=== PATIENT | female | born 2000 | race Caucasian/White ===

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

== ENCOUNTER 2022-02-14 18:13 | Emergency (ER) | payer OTHER, SELFPAY ==
[2022-02-14 18:22] VITALS: BP 126/61; PULSE 78; RESP 16; TEMP 36.9; O2SAT 100
--- NOTE | 2022-02-14 19:00 | ED.WOUNDLAC ---
HPI - Wound/Laceration General Chief Complaint: Wound/Laceration Stated Complaint: Left Foot Sore on Toe Time Seen by Provider: 02/14/22 18:30 Source: patient Mode of arrival: ambulatory Limitations: no limitations History of Present Illness HPI narrative: Ms. Keller is a 21-year-old female patient presenting to the clinic today with complaints of a possible ingrown toenail to the left great toe. She also reports that she had a wound to the second distal toe that has healed but is still sensitive to touch. She reports that she gets ingrown toenails frequently and her mother used to cut them out for her. Related Data Home Medications Medication Instructions Recorded Confirmed dextroamphetamine-amphetamine 10 10 mg PO DAILY 08/05/21 02/14/22 mg tablet sertraline 50 mg tablet 100 mg PO DAILY 08/05/21 02/14/22 clonidine HCl 0.1 mg tablet 0.1 mg PO DAILY 02/14/22 02/14/22 dextroamphetamine-amphetamine 10 10 mg PO DAILY 02/14/22 02/14/22 mg tablet fluconazole 200 mg tablet 200 mg PO DIRECTED 02/14/22 02/14/22 hydroxyzine HCl 25 mg tablet 25 mg PO DAILY 02/14/22 02/14/22 omeprazole 20 mg capsule,delayed 20 mg PO DAILY 02/14/22 02/14/22 release Allergies Allergy/AdvReac Type Severity Reaction Status Date / Time Mushroom Allergy Unknown BURNING IN Uncoded 02/14/22 18:27 THROAT Review of Systems Review of Systems: Pertinent positives per HPI. Patient denies any fever, chills, rash, headache, visual changes, dizziness, cough, runny nose, sore throat, shortness of breath, chest pain, palpitations, nausea, vomiting, diarrhea, constipation, abdominal pain, or any urinary issues. [facility] Past Medical History Medical History No acute medical problems Social History Social History Gender identity (if verbalized by the patient): Female Comments At the time of my signature, I reviewed and agree with the nursing past medical, surgical, social, and family history. There is no relevant family history pertinent to the patient complaint. Exam Narrative: General: Well-developed, well nourished, in no apparent distress Head: Normocephalic, atraumatic. Cardio: Regular rate and rhythm, s1 and s2 normal, no murmur appreciated. Resp: Clear to auscultation bilaterally, no rhonchi, rales, wheezing or rubs. Musculoskeletal: No deformity, mild tender to palpation over the left great toe lateral nail/lateral toe, mild redness noted without sign of infection, grossly normal range of motion, muscle strength strong and equal, peripheral pulse strong, no edema, no cyanosis, normal gait and station. Patient has healing wound to the second distal toe without signs of infection Course Course Emergency Course: Portions of this record may have been created with voice recognition software. Level of Care: Express Care Visit Vital Signs Vital signs: Vital Signs Temperature 36.9 C 02/14/22 18:22 Pulse Rate 78 02/14/22 18:22 Respiratory Rate 16 02/14/22 18:22 Blood Pressure 126/61 02/14/22 18:22 Pulse Oximetry 100 02/14/22 18:22 Oxygen Delivery Room Air 02/14/22 18:22 Temperature 36.9 C 02/14/22 18:22 Pulse Rate 78 02/14/22 18:22 Respiratory Rate 16 02/14/22 18:22 Blood Pressure 126/61 02/14/22 18:22 Pulse Oximetry 100 02/14/22 18:22 Oxygen Delivery Room Air 02/14/22 18:22 Vital signs reviewed Procedures Other Procedure Procedure 1: Other Procedure: Verbal consent obtained for ingrown toenail wedge resection. Patient declined wanting any local anesthetic. Toenail was cleaned with technic care and a iris scissors and needle forceps was used to remove lateral ingrown toenail. Patient tolerated procedure very well MDM - Wound/Laceration MDM Narrative Medical decision making narrative: At the time of visit patient is resting comfortably on the exam t
== END 2022-02-14 19:03 | disposition home or self-care (01) ==
PROVIDERS: Emergency Provider Nurse Practitioner Family; PCP Family Medicine
DX: L60.0 Ingrowing nail (principal)
CPT/HCPCS: 11765; 99212; G0463

== ENCOUNTER 2022-02-21 17:47 | Emergency (ER) | payer OTHER, SELFPAY ==
[2022-02-21 17:54] VITALS: BP 125/96; PULSE 96; RESP 16; TEMP 36.8; O2SAT 99
--- NOTE | 2022-02-21 18:12 | ED.URI ---
HPI - URI/Sore Throat General Chief Complaint: Upper Respiratory Infection Stated Complaint: nausea, head pains, coughing Time Seen by Provider: 02/21/22 18:10 History of Present Illness HPI Narrative: Varsha Keller is a 21 yo female with a PMH of IBS with constipation who was started on a new medication yesterday and had diarrhea and constipation at the same time today which made her feel really nauseated and unsure about the new medication. She had stomach pain this morning and was unable to go to work and she just seems very anxious; feels GI does not understand how difficult change of this med has been Related Data Home Medications Medication Instructions Recorded Confirmed dextroamphetamine-amphetamine 10 10 mg PO DAILY 08/05/21 02/14/22 mg tablet clonidine HCl 0.1 mg tablet 0.1 mg PO DAILY 02/14/22 02/14/22 dextroamphetamine-amphetamine 10 10 mg PO DAILY 02/14/22 02/14/22 mg tablet omeprazole 20 mg capsule,delayed 20 mg PO DAILY 02/14/22 02/14/22 release Iud 02/21/22 Miralax 02/21/22 Rella For Ibs 02/21/22 Allergies Allergy/AdvReac Type Severity Reaction Status Date / Time Mushroom Allergy Unknown BURNING IN Uncoded 02/21/22 17:52 THROAT Review of Systems Review of Systems: CONSTITUTIONAL: Denies fever, chills, sweats. EYES: Denies visual changes, redness, discharge. ENT: Denies rhinorrhea, congestion, sore throat, otalgia. CARDIOVASCULAR: Denies chest pain, palpitations, edema. RESPIRATORY: Denies dyspnea, wheezing, cough GASTROINTESTINAL: Had abdominal pain this morning has nausea, vomiting, diarrhea. GENITOURINARY: Denies dysuria, hematuria, abnormal discharge SKIN: Denies rash or itching. NEUROLOGIC: Denies numbness, or focal weakness. PSYCHIATRIC: Denies anxiety or depression. [facility] Past Medical History Medical History Family history of irritable bowel syndrome Irritable bowel syndrome with constipation No acute medical problems Social History Social History (Updated 02/21/22 @ 18:21 by Twila Hodge CNP) Smoking status: Current every day smoker Tobacco type: e-cigarettes/vaping Gender identity (if verbalized by the patient): Female Comments At time of signature, I agree with nursing past medical, surgical, social and family history. There is no relevant family history pertinent to the presenting complaint. Exam Narrative: GENERAL: This is a well-nourished, well-developed patient, in mild distress. Anxious HEAD: normocephalic, atraumatic. EYES:. Sclera clear/white. Vision is grossly intact. EARS: External ears normal, . Hearing grossly intact. NOSE: External nose normal without nasal discharge, nares without redness, no rhinorrhea. THROAT: Mucous membranes moist, NECK: Neck supple, CARDIOVASCULAR: Regular rate and rhythm without murmurs, gallops, or rubs. RESPIRATORY: Clear to auscultation. Breath sounds equal bilaterally. No wheezes, rales, or rhonchi. GASTROINTESTINAL: Abdomen soft, non-tender, SKIN: warm, intact with no suspicious lesions or rash, good texture and turgor. NEURO: awake, alert, and oriented to person, place and time. There were no obvious focal neurologic abnormalities. Steady gait EXTREMITIES: Normal range of motion. BACK: Nontender without deformity Course Course Emergency Course: Patient here with complaints of anxiety nausea and difficulty with medication that she just started from GI Patient is to take another dose of the medication in the morning and will give some Zofran to help deal with any nausea discussed appropriate eating habits and hydration Level of Care: Express Care Visit Vital Signs Vital signs: Vital Signs Temperature 98.3 F 02/21/22 17:54 Pulse Rate 96 02/21/22 17:54 Respiratory Rate 16 02/21/22 17:54 Blood Pressure 125/96 H 02/21/22 17:54 Pulse Oximetry 99 02/21/22 17:54 Oxygen Delivery Room Air 02/21/22 17:54 Temperature 98.3 F
== END 2022-02-21 18:31 | disposition home or self-care (01) ==
PROVIDERS: Emergency Provider Nurse Practitioner; PCP Family Medicine
DX: K58.1 Irritable bowel syndrome with constipation (principal); F17.290 Nicotine dependence, other tobacco product, uncomplicated; F90.9 Attention-deficit hyperactivity disorder, unspecified type
CPT/HCPCS: 99213; G0463

== ENCOUNTER 2022-04-21 10:58 | Emergency (ER) | payer OTHER, SELFPAY ==
--- NOTE | 2022-04-21 11:19 | ED.EXTPRO ---
HPI - Extremity Problem General Chief complaint: Extremity Injury, Upper Stated complaint: Left Elbow Pain Time Seen by Provider: 04/21/22 12:05 Source: patient Mode of arrival: ambulatory Limitations: no limitations History of Present Illness HPI Narrative: Concepcion well as a 21-year-old female patient presenting to the clinic today with complaints of left elbow pain. She reports she fell when trying to get something out of the cabinet at work and injured her left elbow. She reports pain to the posterior elbow. States that pain is most when she is straightening and twisting her Related Data Home Medications Medication Instructions Recorded Confirmed dextroamphetamine-amphetamine 10 10 mg PO DAILY 02/14/22 02/14/22 mg tablet omeprazole 20 mg capsule,delayed 20 mg PO DAILY 02/14/22 02/14/22 release escitalopram oxalate 10 mg tablet mg 04/21/22 etonogestrel 0.12 mg-ethinyl vag ring vaginal 04/21/22 estradiol 0.015 mg/24 hr vaginal ring ([facility]) pantoprazole 40 mg tablet,delayed mg PO 04/21/22 release Allergies Allergy/AdvReac Type Severity Reaction Status Date / Time Mushroom Allergy Unknown BURNING IN Uncoded 04/21/22 11:30 THROAT Review of Systems Review of Systems: Pertinent positives per HPI. Patient denies any fever, chills, rash, headache, visual changes, dizziness, cough, runny nose, sore throat, shortness of breath, chest pain, palpitations, nausea, vomiting, diarrhea, constipation, abdominal pain, or any urinary issues. PMFSH Past Medical History Medical History Family history of irritable bowel syndrome Irritable bowel syndrome with constipation No acute medical problems Social History Social History Smoking status: Current every day smoker Tobacco type: e-cigarettes/vaping Gender identity (if verbalized by the patient): Female Comments At the time of my signature, I reviewed and agree with the nursing past medical, surgical, social, and family history. There is no relevant family history pertinent to the patient complaint. Exam Narrative: General: Well-developed, well nourished, in no apparent distress Head: Normocephalic, atraumatic. Cardio: Regular rate and rhythm, s1 and s2 normal, no murmur appreciated. Resp: Clear to auscultation bilaterally, no rhonchi, rales, wheezing or rubs. Musculoskeletal: No deformity, tender to palpation over the left posterior elbow, grossly normal range of motion, pain turning left thumb towards the floor, muscle strength strong and equal, peripheral pulse strong, no edema, no cyanosis, normal gait and station Course Course Emergency Course: Portions of this record may have been created with voice recognition software. Level of Care: Express Care Visit Vital Signs Vital signs: Vital signs reviewed MDM - Extremity (Nontraumatic) MDM Narrative Medical decision making narrative: At the time of the patient is resting comfortably on the exam table. I suspect patient has a elbow contusion however I cannot rule out a fracture. offer to send patient to another Express Care for imaging and she declined at this time. Supportive measures for elbow contusion was reviewed with the patient she voiced understanding of discharge instructions and agrees to treatment plan. Discharge Plan Discharge Clinical Impression: Elbow pain, left, Contusion of elbow, left Patient Disposition: Home, Self-Care Condition: Stable Instructions: Antibiotic Form, Contusion in Adults (ED) Additional Instructions: Offered to send patient for x-ray and she declined at this time May take Tylenol/ Motrin as needed for pain Rest, ice, and elevate Follow-up with your PCP in 1 week if symptoms persist or sooner if they worsen Prescriptions: No Action dextroamphetamine-amphetamine 10 mg tablet 10 mg PO DAILY o
[2022-04-21 11:47] VITALS: BP 129/73; PULSE 75; RESP 16; TEMP 37.1; O2SAT 100
== END 2022-04-21 12:11 | disposition home or self-care (01) ==
PROVIDERS: Emergency Provider Nurse Practitioner Family; PCP Family Medicine
DX: S50.02XA Contusion of left elbow, initial encounter (principal); F17.209 Nicotine dependence, unspecified, with unspecified nicotine-induced disorders; W19.XXXA Unspecified fall, initial encounter; Y99.0 Civilian activity done for income or pay
CPT/HCPCS: 99213; G0463

== ENCOUNTER 2022-05-09 11:42 | Emergency (ER) | payer OTHER, SELFPAY ==
--- NOTE | 2022-05-09 12:07 | ED.EAR ---
HPI - Ear Problem General Chief complaint: Ear Stated complaint: severe migraine,ear inf Time Seen by Provider: 05/09/22 12:32 Source: patient and RN notes reviewed Mode of arrival: ambulatory Limitations: no limitations History of Present Illness HPI Narrative: 21-year-old female presents concern for running half week history of ear pain, sinus congestion, sinus pain, headaches. Reports she started taking leftover amoxicillin today. MD Complaint: ear pain Related Data Home Medications Medication Instructions Recorded Confirmed dextroamphetamine-amphetamine 10 10 mg PO DAILY 02/14/22 02/14/22 mg tablet omeprazole 20 mg capsule,delayed 20 mg PO DAILY 02/14/22 02/14/22 release escitalopram oxalate 10 mg tablet mg 04/21/22 etonogestrel 0.12 mg-ethinyl vag ring vaginal 04/21/22 estradiol 0.015 mg/24 hr vaginal ring (EluRyng) pantoprazole 40 mg tablet,delayed mg PO 04/21/22 release Allergies Allergy/AdvReac Type Severity Reaction Status Date / Time Mushroom Allergy Unknown BURNING IN Uncoded 05/09/22 12:20 THROAT Review of Systems Review of Systems: CONSTITUTIONAL: Reports malaise EYES: Denies visual changes, redness, or discharge. ENT: Reports rhinorrhea, congestion, sinus pain, and sore throat. Reports bilateral ear pain CARDIOVASCULAR: Denies chest pain, palpitations, or edema. RESPIRATORY: Denies cough. Denies dyspnea. GASTROINTESTINAL: Denies abdominal pain, nausea, vomiting, diarrhea SKIN: Denies rash or itching. MUSCULOSKELETAL: Denies myalgia. NEUROLOGIC: Reports headache. All systems reviewed & are unremarkable except as noted in HPI and below PMFSH Past Medical History Medical History Family history of irritable bowel syndrome Irritable bowel syndrome with constipation No acute medical problems Social History Social History Smoking status: Current every day smoker Tobacco type: e-cigarettes/vaping Gender identity (if verbalized by the patient): Female Comments At time of signature, agree with nursing past medical, surgical, social and family history. There is no relevant family history pertinent to the presenting complaint Exam Narrative: GENERAL: Well-appearing, well-nourished, and in no acute distress. HEAD: Normocephalic EYES: PERRLA, conjunctivae clear ENT: Nares clear, turbinates edematous, erythematous. Mucous membranes moist. TM erythematous and bulging bilaterally; no tragal tenderness. Oropharynx erythematous without lesions. Tonsils not enlarged and without exudate, no drooling, no hoarseness, no trismus, uvula midline. NECK: Supple. No lymphadenopathy CHEST: Clear to auscultation, breath sounds equal. No wheezing, rhonchi, rales, or stridor. No respiratory distress, speaks in full sentences. HEART: Regular rate and rhythm. No murmur heard. SKIN: Warm, dry, no rash. NEURO: Alert and oriented x3. PSYCH: Normal mood and affect Course Course Emergency Course: Patient is aware of diagnosis, understands and agrees to treatment plan. Anticipatory guidance given. Patient agrees to follow-up as directed and is aware of reasons to seek care at the emergency department. Portions of this record may have been created with voice recognition software Level of Care: Express Care Visit Vital Signs Vital signs: Reviewed. Medical Decision Making MDM Narrative Medical decision making narrative: Differential diagnosis considered: Jara virus, strep pharyngitis, allergic rhinitis, upper respiratory tract infection, sinusitis, rhinosinusitis, nasopharyngitis. viral pharyngitis, otitis media, otitis externa, otitis effusion, cerumen impaction, foreign body. Exam findings show no acute concerns or changes; patient is non-toxic appearing and is in no distress. Patient is appropriate for outpatient treatment and follow-up. Critical Care Time Krystian
[2022-05-09 12:28] VITALS: BP 139/80; PULSE 71; RESP 20; TEMP 36.2; O2SAT 100
== END 2022-05-09 12:45 | disposition home or self-care (01) ==
PROVIDERS: Emergency Provider Nurse Practitioner; PCP Family Medicine
DX: H66.003 Acute suppurative otitis media without spontaneous rupture of ear drum, bilateral (principal); F17.290 Nicotine dependence, other tobacco product, uncomplicated
CPT/HCPCS: 99213; G0463

== ENCOUNTER 2022-08-06 14:14 | Emergency (ER) | payer OTHER, SELFPAY ==
--- NOTE | ~2022-08-06 | XR_ITS ---
EXAMINATION: XR abdomen/kub 1V DATE: 08/06/2022 15:00 INDICATION: Constipation. TECHNIQUE: A supine view of the abdomen on 3 radiographs was obtained. COMPARISON: None. FINDINGS: There are no dilated loops of bowel. There is a small volume of stool in the colon. IMPRESSION: 1. Normal bowel gas pattern. Reviewed, dictated and finalized at location A. [employer]
--- NOTE | 2022-08-06 14:21 | ED.ABDPAIN ---
HPI - Abdominal Pain General Chief Complaint: Nausea/Vomiting/Diarrhea Stated Complaint: Abdominal Pain Time Seen by Provider: 08/06/22 14:30 Source: patient Mode of arrival: ambulatory Limitations: no limitations History of Present Illness HPI narrative: Jocelynn is a 22-year-old female patient presenting to the clinic today with complaints of abdominal cramping, back pain, dizziness, bruising, weight loss, and nausea x3 months. States she has been to the ER a couple times for this and they have not found anything wrong with her. She is concerned that she may be or has a tape worm. She denies any shortness of breath or chest pain. States she feels as though she is constipated. Has had a bowel movement today but it was very hard. Has a doctor's appointment with her PCP on August 18. History of irritable bowel syndrome with constipation Related Data Home Medications Medication Instructions Recorded Confirmed escitalopram oxalate 10 mg tablet mg 04/21/22 Allergies Allergy/AdvReac Type Severity Reaction Status Date / Time Mushroom Allergy Unknown BURNING IN Uncoded 08/06/22 14:26 THROAT Review of Systems Review of Systems: Pertinent positives per HPI. Patient denies any fever, chills, rash, headache, visual changes, dizziness, cough, runny nose, sore throat, shortness of breath, chest pain, palpitations, nausea, vomiting, diarrhea, constipation, or any urinary issues. PMFSH Past Medical History Medical History Family history of irritable bowel syndrome Irritable bowel syndrome with constipation No acute medical problems Social History Social History Smoking status: Current every day smoker Tobacco type: e-cigarettes/vaping Gender identity (if verbalized by the patient): Female Comments At the time of my signature, I reviewed and agree with the nursing past medical, surgical, social, and family history. There is no relevant family history pertinent to the patient complaint. Exam Narrative: General: Well-developed, well nourished, in no apparent distress. Head: Normocephalic, atraumatic. Cardio: Regular rate and rhythm, s1 and s2 normal, no murmur appreciated. Resp: Clear to auscultation bilaterally, no rhonchi, rales, wheezing or rubs. Abdomen: Soft, pliable, bowel sounds present in all quadrants, generalized tender to palpation, no organomegly, no CVAT tenderness. Skin: Intact, pink, warm, dry, sporadic localized superficial bruising noted to the bilateral arms and legs. Course Course Emergency Course: Portions of this record may have been created with voice recognition software. Level of Care: Express Care Visit Vital Signs Vital signs: Vital Signs Temperature 36.3 C L 08/06/22 14:24 Pulse Rate 78 08/06/22 14:24 Respiratory Rate 16 08/06/22 14:24 Blood Pressure 135/82 08/06/22 14:24 Pulse Oximetry 100 08/06/22 14:24 Oxygen Delivery Room Air 08/06/22 14:24 Temperature 36.3 C L 08/06/22 14:24 Pulse Rate 78 08/06/22 14:24 Respiratory Rate 16 08/06/22 14:24 Blood Pressure 135/82 08/06/22 14:24 Pulse Oximetry 100 08/06/22 14:24 Oxygen Delivery Room Air 08/06/22 14:24 Vital signs reviewed MDM - Abdominal Pain MDM Narrative Medical decision making narrative: At the time of visit patient is resting comfortably on the exam table. Urinalysis shows a trace of blood otherwise normal. test was negative in the clinic today. Abdominal x-ray was performed and shows no sign of abdominal pain etiology. Offer to send patient to the ER for further evaluation-CT/labs and patient declined at this time and states she will just follow up with her PCP on the . Supportive measures were discussed with the patient she voiced understanding of discharge instructions and agrees to treatment plan Differential Diagnosis
[2022-08-06 14:24] VITALS: BP 135/82; PULSE 78; RESP 16; TEMP 36.3; O2SAT 100
== END 2022-08-06 15:30 | disposition home or self-care (01) ==
PROVIDERS: Emergency Provider Nurse Practitioner Family; PCP Family Medicine
DX: R10.84 Generalized abdominal pain (principal); F17.290 Nicotine dependence, other tobacco product, uncomplicated
CPT/HCPCS: 74018; 81003; 81025; 99213; G0463

== ENCOUNTER 2022-09-14 12:51 | Emergency (ER) | payer OTHER, SELFPAY ==
[2022-09-14 13:00] VITALS: BP 135/72; PULSE 74; RESP 16; TEMP 37.2; O2SAT 100
== END 2022-09-14 13:05 | disposition left against medical advice (07) ==
PROVIDERS: Emergency Provider Internal Medicine Hematology & Oncology; PCP Family Medicine
DX: Z53.21 Procedure and treatment not carried out due to patient leaving prior to being seen by health care provider (principal)
CPT/HCPCS: 99199

== ENCOUNTER 2022-12-21 22:11 | Emergency (ER) | payer OTHER, SELFPAY ==
[2022-12-21 22:17] VITALS: BP 114/68; PULSE 90; RESP 16; TEMP 36.2; O2SAT 100
[2022-12-21] MEDS: ACETAMINOPHEN 500 MG TABLET 1000 MG PO (23:28)
[2022-12-21 23:46] LABS: Strep Group A RT-PCR DETECTED (Negative)
--- NOTE | 2022-12-22 00:22 | ED.GENADULT ---
HPI - General Adult General Chief complaint: Unspecified Stated complaint: tonsil stones Time Seen by Provider: 12/21/22 23:02 History of Present Illness HPI narrative: This is a 22-year-old female, with past history of depression and tonsil stones, who presents to the emergency department with 2 days of headache and sore throat. She rates her pain 5/10; exacerbated by swallowing she denies any other known aggravating or alleviating factors. She denies inability to swallow or difficulty breathing. She states she is 5 months . Related Data Home Medications Medication Instructions Recorded Confirmed escitalopram oxalate 10 mg tablet mg 04/21/22 Allergies Allergy/AdvReac Type Severity Reaction Status Date / Time Mushroom Allergy Unknown BURNING IN Uncoded 12/21/22 22:11 THROAT Review of Systems Review of Systems: CONSTITUTIONAL: Fevers denies chills, or sweats. EYES: Denies visual changes, redness, or discharge. ENT: Sore throat denies rhinorrhea, congestion, or otalgia. CARDIOVASCULAR: Denies chest pain, palpitations, or edema. RESPIRATORY: Denies cough or dyspnea. GASTROINTESTINAL: Denies abdominal pain, nausea, vomiting, or diarrhea. GENITOURINARY: Denies dysuria or hematuria. MUSCULOSKELETAL: Denies back pain, joint pain, or myalgia. NEUROLOGIC: Headache denies numbness, dizziness, or weakness. PSYCHIATRIC: Denies anxiety or depression. PMFSH Past Medical History Medical History Family history of irritable bowel syndrome Irritable bowel syndrome with constipation No acute medical problems Social History Social History Smoking status: Current every day smoker Tobacco type: e-cigarettes/vaping Gender identity (if verbalized by the patient): Female Exam Narrative: GENERAL: Well-developed, well-nourished, and in no acute distress. HEAD: Normocephalic, atraumatic. EYES: PERRLA and EOMI. ENT: Nares clear, no rhinorrhea or epistaxis. Mucous membranes moist. Oropharynx with tonsillar hypertrophy, erythema and exudate, No other lesions. Bilateral TMs pearly kapadia nonbulging NECK: Supple. Tender right anterior cervical lymphadenopathy palpation. CHEST: Clear to auscultation. No respiratory distress. No wheezes rales or rhonchi HEART: Regular rate and rhythm. No murmur heard. Normal peripheral pulses. ABDOMEN: Gravid uterus, soft, nontender, nondistended, normal active bowel sounds. EXTREMITIES: Normal range of motion. No edema. SKIN: Warm, dry, no rash. NEURO: No focal deficits. Alert and oriented x3. PSYCH: Normal mood and affect. Course Course Emergency Course: 01:00 - The patient tested positive for strep pharyngitis. Shared decision making conversation had. The patient elects treatment with penicillin. She was given IM pen G which she tolerated well. Will discharge with recommendation for primary care follow-up. Discussed return and emergency precautions including signs/symptoms of airway compromise and respiratory distress. The patient voiced understanding and is comfortable with the plan. All questions answered to her satisfaction. Vital Signs Vital signs: Vital Signs Temperature 97.2 F L 12/21/22 22:17 Pulse Rate 90 12/21/22 22:17 Respiratory Rate 16 12/21/22 22:17 Blood Pressure 114/68 12/21/22 22:17 Pulse Oximetry 100 12/21/22 22:17 Oxygen Delivery Room Air 12/21/22 22:17 Temperature 97.2 F L 12/21/22 22:17 Pulse Rate 90 12/21/22 22:17 Respiratory Rate 16 12/21/22 22:17 Blood Pressure 114/68 12/21/22 22:17 Pulse Oximetry 100 12/21/22 22:17 Oxygen Delivery Room Air 12/21/22 22:17 Medical Decision Making MDM Narrative Medical decision making narrative: Plan: Labs, pain control, reassess Differential Diagnosis Differential Diagnosis: Strep pharyngitis, viral pharyngitis, viral URI, other Vital Sign
[2022-12-22] MEDS: PENICILLIN G BENZATHINE 1,200,000 UNITS/2 ML SYRINGE 1200000 UNITS IM (00:51)
== END 2022-12-22 01:31 | disposition home or self-care (01) ==
PROVIDERS: Emergency Provider Preventive Medicine Aerospace Medicine; PCP Family Medicine
DX: J02.0 Streptococcal pharyngitis (principal); R51.9 Headache, unspecified; K58.1 Irritable bowel syndrome with constipation; F17.290 Nicotine dependence, other tobacco product, uncomplicated
CPT/HCPCS: 87651; 96372; 99283; A9270; J0561

== ENCOUNTER 2023-02-08 13:26 | Emergency (ER) | payer OTHER, SELFPAY ==
[2023-02-08 13:33] VITALS: BP 114/68; PULSE 90; RESP 18; TEMP 35.9; O2SAT 100
--- NOTE | 2023-02-08 14:25 | ED.URI ---
HPI - URI/Sore Throat General Chief Complaint: Upper Respiratory Infection Stated Complaint: Sinus Source: patient Mode of arrival: ambulatory Limitations: no limitations History of Present Illness HPI Narrative: 22 y/o female presented for c/o cough productive of thick green yellow sputum, right sided headache, and sinus pressure above teeth for almost one week. Reports the right sided headache can cause blurred vision. Started with right jaw pressure today. Using albuterol inhaler from previous illness. Denies sob, wheezing, n/v/d/f/c. Taking Sudafed and mucinex as advised by obgyn. Patient vapes nicotine daily. Patient tested for Covid just [employer] with [employer] and is awaiting the result. 25 weeks gestation Related Data Home Medications Medication Instructions Recorded Confirmed escitalopram oxalate 10 mg tablet 20 mg PO DAILY 04/21/22 02/08/23 buspirone 5 mg tablet 5 mg PO BID 02/08/23 02/08/23 metoprolol tartrate 25 mg tablet 25 mg PO BID 02/08/23 02/08/23 Allergies Allergy/AdvReac Type Severity Reaction Status Date / Time Mushroom Allergy Unknown BURNING IN Uncoded 02/08/23 13:47 THROAT Review of Systems Review of Systems: CONSTITUTIONAL: Denies body aches, fever, chills, or sweats. EYES: Denies visual changes, redness, or discharge. ENT: reports rhinorrhea, congestion, denies sore throat, or otalgia. CARDIOVASCULAR: Denies chest pain, palpitations, or edema. RESPIRATORY: Reports cough, sob with exertion, wheezing. GASTROINTESTINAL: Denies abdominal pain, nausea, vomiting, or diarrhea. SKIN: Denies rash, itching, or wounds. MUSCULOSKELETAL: Denies back pain, joint pain, or myalgia. NEUROLOGIC: Denies headache, numbness, tingling, or weakness. All systems reviewed & are unremarkable except as noted in HPI and below PMFSH Past Medical History Medical History Family history of irritable bowel syndrome Irritable bowel syndrome with constipation No acute medical problems Social History Social History Smoking status: Current every day smoker Tobacco type: e-cigarettes/vaping Gender identity (if verbalized by the patient): Female Comments At time of signature, I have reviewed and agree with nursing past medical, surgical, social and family history unless otherwise noted. Please see nursing chart for further information. There is no relevant family history pertinent to the presenting complaint Exam Narrative: GENERAL: Well-appearing, in no acute distress. EYES: EOMI. No redness or drainage. Conjunctivae normal. ENT: Mucous membranes pink and moist. No rhinorrhea. TMs normal bilaterally. Throat normal. Normal dentition. Uvula midline. NECK: Normal AROM. Supple. CHEST: No respiratory distress. End inspiratory wheezing to [place] hill. HEART: Regular rate and rhythm. No murmur appreciated. ABDOMEN: Gravid EXTREMITIES: Normal range of motion. No edema. SKIN: Warm, dry, no rash. Capillary refill normal. Normal skin turgor. NEURO: Alert and oriented x3. Gait steady. PSYCH: Normal affect. Course Course Emergency Course: Patient is aware of diagnosis, understands and agrees to treatment plan. Anticipatory guidance given. Patient agrees to follow-up as directed and is aware of reasons to seek care at the emergency department. Portions of this record may have been created with voice recognition software Level of Care: Express Care Visit Vital Signs Vital signs: Vital Signs Temperature 96.7 F L 02/08/23 13:33 Pulse Rate 90 02/08/23 13:33 Respiratory Rate 18 02/08/23 13:33 Blood Pressure 114/68 02/08/23 13:33 Pulse Oximetry 100 02/08/23 13:33 Oxygen Delivery Room Air 02/08/23 13:33 Temperature 96.7 F L 02/08/23 13:33 Pulse Rate 90 02/08/23 13:33 Respiratory Rate 18 02/08/23 13:33 Blood Pressure 114/68 02/08/23 13:33 Pulse
== END 2023-02-08 14:40 | disposition home or self-care (01) ==
PROVIDERS: Emergency Provider Nurse Practitioner Family; PCP Advanced Practice Midwife
DX: J40 Bronchitis, not specified as acute or chronic (principal)
CPT/HCPCS: 99213; G0463

== ENCOUNTER 2023-03-14 11:31 | Observation (INO) | payer OTHER, SELFPAY ==
[2023-03-14] VITALS (16 sets, daily range): BP systolic 106–130; BP diastolic 53–69; PULSE 80–110; RESP 16–18; TEMP 36.4–36.8; BMI 36.5
--- NOTE | 2023-03-14 12:16 | OBADM ---
This patient, Varsha Keller, admitted to the OB room [facility] for observation. Patient/family oriented to hospital policies and general routines including ID bracelet, bed and alarms, visiting hours, pain management, procedures, bathroom and other care routines, personal items, smoking policy, room service/diet, and visiting hours. Patient/Family are encouraged to report perceived risks to care and to ask questions if they do not understand what they are told or what they should do.
[2023-03-14 12:19] LABS: Appearance Urine Clear (Clear); Bilirubin Urine Negative (Negative); Blood Urine Negative (Negative); Color Urine Yellow (Yellow); Glucose Urine UA Negative (Negative); Ketones Urine Negative (Negative); Leukocyte Esterase Ur Negative LEU/UL (Negative); Nitrate Urine Negative (Negative); Protein Urine Negative (Negative); Specific Grav Ur 1.021 (1.001-1.035); Urobilinogen Urine 0.2 mg/dL (<2.0); pH Urine 7.5 (5.0-9.0)
[2023-03-14 12:42] LABS: Add Urine Microscopic? NO
[2023-03-14] MEDS: ACETAMINOPHEN 500 MG TABLET 1000 MG PO (13:42)
[2023-03-14] MEDS: NIFEdipine 10 MG CAPSULE PO (13:42)
[2023-03-14] MEDS: CYCLOBENZAPRINE HCL 10 MG TABLET PO (13:44)
[2023-03-14] MEDS: TERBUTALINE SULFATE 1 MG/ML VIAL 0.25 MG SUB-Q (16:15)
[2023-03-14] MEDS: NIFEdipine 30 MG TAB.ER.24 PO (16:31)
--- NOTE | 2023-03-14 18:30 | PC.NURSE ---
Plan of care discussed with patient. Patient states she is resting comfortably and states she is not feeling any cramping, pain, tightening. Patient reports active movement.
--- NOTE | 2023-03-14 19:16 | PC.NURSE ---
Updated Dr. Arreola on maternal and assessments including; uterine activity, HR and VS. Patient states she is resting comfortably without cramping/pressure/contractions. Discharge orders received.
--- NOTE | 2023-03-14 19:35 | PC.NURSE ---
Discharge instructions reviewed with patient. Patient educated on perterm labor precautions and provided an educational handout. Patient states understanding of all discharge instructions and handouts. Patient educated on procardia medication and instructed to orange picker prescription from pharmacy and take as prescribe. Patient also instructed to call office in AM to schedule follow up appointment.
--- NOTE | 2023-03-28 21:22 | P.PNOB_ITS ---
OB - Triage/Final Diagnosis Visit Information Comments/Additional reasons for admission: I have assessed the risk for this patient, Varsha Keller, and determined that she would benefit from observation care. Evaluation Laboratory results: Laboratory Tests 03/14/23 12:08 Urine Color Yellow Urine Appearance Clear Urine pH 7.5 Ur Specific [place] 1.021 Urine Protein Negative Urine Glucose (UA) Negative Urine Ketones Negative Ur Blood (Man) Negative Urine Nitrate Negative Urine Bilirubin Negative Urine Urobilinogen 0.2 Leukocyte Esterase Rfl Negative
--- NOTE | 2023-04-09 11:38 | P.PNOB_ITS ---
OB - Triage/Final Diagnosis Visit Information Comments/Additional reasons for admission: I have assessed the risk for this patient, Varsha Keller, and determined that she would benefit from observation care. Evaluation Laboratory results: Laboratory Tests 03/14/23 12:08 Urine Color Yellow Urine Appearance Clear Urine pH 7.5 Ur Specific [place] 1.021 Urine Protein Negative Urine Glucose (UA) Negative Urine Ketones Negative Ur Blood (Man) Negative Urine Nitrate Negative Urine Bilirubin Negative Urine Urobilinogen 0.2 Leukocyte Esterase Rfl Negative Final Diagnosis (1) Headache: Qualifiers: Headache chronicity pattern: acute headache Headache type: unspecified Intractability: not intractable Qualified Code(s): R51.9 - Headache, unspecified Code(s): R51.9 - Headache, unspecified Status: Acute
== END 2023-03-14 19:35 | disposition home or self-care (01) ==
PROVIDERS: Admitting Provider Obstetrics & Gynecology; Referring Provider Advanced Practice Midwife; Visit Provider Obstetrics & Gynecology
DX: R10.9 Unspecified abdominal pain (principal); O26.893 Other specified pregnancy related conditions, third trimester; Z3A.29 29 weeks gestation of pregnancy
CPT/HCPCS: 81003; 96372; A9270; G0378; G0379; J3105

== ENCOUNTER 2023-03-20 08:35 | Outpatient (CLI) | payer OTHER, SELFPAY ==
[2023-03-20] VITALS (73 sets, daily range): BP systolic 92–132; BP diastolic 45–70; PULSE 82–111; RESP 16–20; TEMP 36.6–37.1; O2SAT 98–100
[2023-03-20] MEDS: diphenhydrAMINE HCl CAP 25 MG CAPSULE PO (09:21)
[2023-03-20] MEDS: ACETAMINOPHEN 500 MG TABLET 1000 MG PO (09:21)
[2023-03-20 09:40] LABS: Hematocrit 24.3 % (37.0-47.0); Hemoglobin 7.4 g/dL (12.0-15.0); Mean Corpuscular HGB Conc 30.5 g/dl (32-36); Mean Corpuscular Hemoglobin 28.5 pg (26-34); Mean Corpuscular Volume 93.5 fl (80-100); Mean Platelet Volume 9.5 fl (7.4-10.4); Platelet Count Result 205 k/mm3 (150-375); Red Cell Distribution Width 13.8 % (11.5-14.5); White Blood Count 12.5 K/mm3 (4.5-10.0)
== END 2023-03-20 16:21 | disposition home or self-care (01) ==
LOC: ANHOBOP 08:42 → ANHOBPP 03-26 06:23
PROVIDERS: Visit Provider Advanced Practice Midwife
DX: D64.9 Anemia, unspecified (principal)
CPT/HCPCS: 36415; 36430; 85027; 86850; 86900; 86901; 86923; 99199; A9270; P9016

== ENCOUNTER 2023-04-06 18:20 | Observation (INO) | payer OTHER, SELFPAY ==
[2023-04-06 18:48] VITALS: BP 121/62; PULSE 90
[2023-04-06 19:00] VITALS: BP 111/57; PULSE 88
[2023-04-06 19:23] VITALS: BMI 37.8
[2023-04-06 19:30] VITALS: BP 118/64; PULSE 86
[2023-04-06 19:35] LABS: Appearance Urine Cloudy (Clear); Bacteria Urine 2+ /hpf; Bilirubin Urine 1+ (Negative); Blood Urine Negative (Negative); Color Urine Dark Yellow (Yellow); Glucose Urine UA Negative (Negative); Ketones Urine Negative (Negative); Leukocyte Esterase Ur 1+ LEU/UL (NEGATIVE); Nitrate Urine Negative (Negative); Non Pathogenic Casts 0-2; Protein Urine Trace mg/dL (Negative); RBC Urine 0-2 /hpf (0-2); Specific Grav Ur 1.032 (1.001-1.035); Squamous Epithelial Cell Urine Many /hpf (Few); WBC Urine 51-100 /hpf (0-3); pH Urine 6.5 (5.0-9.0)
[2023-04-06 19:37] LABS: Add Urine Microscopic? YES
[2023-04-06] MEDS: LACTATED RINGERS 1,000 ML 999 ML IV CONT (20:02)
[2023-04-06] MEDS: ONDANSETRON HCL ODT 4 MG TABLET PO (20:03)
[2023-04-06] MEDS: diphenhydrAMINE HCl INJ 50 MG/ML VIAL 25 MG IV PUSH (21:21)
[2023-04-06] MEDS: NIFEdipine 10 MG CAPSULE PO (21:21)
[2023-04-06] MEDS: CYCLOBENZAPRINE HCL 5 MG TABLET PO (21:33)
--- NOTE | 2023-04-09 21:34 | P.PNOB_ITS ---
OB - Triage/Final Diagnosis Visit Information Comments/Additional reasons for admission: I have assessed the risk for this patient, Varsha Keller, and determined that she would benefit from observation care. Evaluation Laboratory results: Laboratory Tests 04/06/23 18:47 Urine Color Dark yellow Urine Appearance Cloudy H Urine pH 6.5 Ur Specific [place] 1.032 Urine Protein Trace Urine Glucose (UA) Negative Urine Ketones Negative Ur Blood (Man) Negative Urine Nitrate Negative Urine Bilirubin 1+ H Urine Urobilinogen 1.0 Ur Leukocyte Esterase 1+ H Urine RBC 0-2 Urine WBC 51-100 Ur Squamous Epith Cells Many H Urine Bacteria 2+ H Urine Casts 0-2 Final Diagnosis (1) contractions: Code(s): O47.00 - False labor before 37 completed weeks of gestation, unspecified trimester Status: Acute
== END 2023-04-06 22:54 | disposition home or self-care (01) ==
PROVIDERS: Admitting Provider Obstetrics & Gynecology; Referring Provider Advanced Practice Midwife; Visit Provider Obstetrics & Gynecology
DX: O47.03 False labor before 37 completed weeks of gestation, third trimester (principal); Z3A.32 32 weeks gestation of pregnancy
CPT/HCPCS: 81001; 87086; 96365; 96366; 96374; 96375; A9270; G0378; G0379; J1200; J1756; J7120

== ENCOUNTER 2023-05-16 22:14 | Inpatient (IN) | payer OTHER, SELFPAY ==
[2023-05-16] VITALS (7 sets, daily range): BP systolic 112–133; BP diastolic 70–84; PULSE 92–103; RESP 16; TEMP 36.8; BMI 39.8
--- NOTE | 2023-05-16 22:14 | LDADM ---
This patient, Varsha Keller, was admitted to Labor/Delivery/Recovery 105 on 05/16/23 at 22:14. Plans for labor, pain management and were discussed with patient. Patient/family oriented to hospital policies and general routines including ID bracelet, bed and alarms, visiting hours, pain management, procedures, bathroom and other care routines, personal items, smoking policy, room service/diet and guest tray routines, security routines, and visiting hours. Patient/Family are encouraged to report perceived risks to care and to ask questions if they do not understand what they are told or what they should do. See OBIX for further documentation.
[2023-05-16 23:12] LABS: Basophils Percent Auto 0.1 % (0.2-1.2); Eosinophils Percent Auto 0.2 % (0-4.4); Hematocrit 33.8 % (37.0-47.0); Hemoglobin 11.1 g/dL (12.0-15.0); Immature Granulocyte Absolute 0.22 K/mm3 (0.00-0.031); Immature Granulocyte Percent A 1.5 % (0-0.5); Lymphocytes Percent Auto 12.3 % (18.3-44.2); Mean Corpuscular HGB Conc 32.8 g/dl (32-36); Mean Corpuscular Hemoglobin 31.7 pg (26-34); Mean Corpuscular Volume 96.6 fl (80-100); Mean Platelet Volume 10.2 fl (7.4-10.4); Monocytes Absolute Auto 0.8 K/mm3 (0.1-0.6); Monocytes Percent Auto 5.3 % (2.6-8.5); Neutrophils Absolute Auto 11.8 K/mm3 (1.3-6.7); Neutrophils Percent Auto 80.6 % (45.5-73.1); Platelet Count Result 203 k/mm3 (150-375); Red Cell Distribution Width 18.4 % (11.5-14.5); White Blood Count 14.6 K/mm3 (4.5-10.0)
[2023-05-16] MEDS: LACTATED RINGERS 1,000 ML 125 ML IV CONT (23:19)
[2023-05-16] MEDS: OXYTOCIN 30 UNITS/NS 500 ML 30 UNITS/500 ML BAG 6 UNITS IV CONT (23:19)
[2023-05-17] VITALS (186 sets, daily range): BP systolic 73–156; BP diastolic 30–113; PULSE 67–174; RESP 16–17; TEMP 36.4–37.2; O2SAT 83–100
--- NOTE | 2023-05-17 01:22 | WPDOBADMIT ---
Obstetrics - Admit Note Admission Note: record reviewed. No pertinent additions to the history and/or any subsequent changes in the physical findings that are not consistent with the expected course of the were found. Additions to the history and/or subsequent changes in the physical findings follow. SROM, clear fluid, SVE 3-4/75/-2 forebag ruptured and IUPC placed, clear odorless fluid, anticipate vaginal delivery
[2023-05-17] MEDS: fentaNYL CITRATE INJ (*CRX) 100 MCG/2 ML VIAL IV PUSH ×2 (02:25→03:31)
[2023-05-17] MEDS: LACTATED RINGERS 1,000 ML 125 ML IV CONT ×2 (03:57→07:20)
--- NOTE | 2023-05-17 04:05 | WPDANESEPPF ---
Anes - Initial Pre Proc Eval Procedure: Labor epidural Date/Time: 05/17/23 04:05 Surgeon: Elisha Arreola MD Pre Op Diagnosis: Leaking Patient Data Age: 22 Gender: F Height: 1.6 m Weight: 102 kg Last Vital Signs Temp 36.8 C 05/17/23 00:52 Pulse 82 05/17/23 04:01 Resp 17 05/17/23 00:52 BP 131/76 05/17/23 04:01 Pulse Ox 100 05/17/23 04:03 O2 Del Method Room Air 05/16/23 22:53 Allergies Allergy/AdvReac Type Severity Reaction Status Date / Time Mushroom Allergy Unknown BURNING IN Uncoded 05/07/23 15:45 THROAT Home Medications Medication Instructions Recorded Confirmed Type escitalopram oxalate 10 mg tablet 20 mg PO DAILY 04/21/22 05/16/23 History buspirone 5 mg tablet 5 mg PO DAILY 02/08/23 05/16/23 History metoprolol tartrate 25 mg tablet 25 mg PO DAILY 02/08/23 05/16/23 History vit no.95-ferrous 1 tablet PO DAILY 03/14/23 05/16/23 History fumarate 28 mg-folic acid 800 mcg tablet () vitamin B12 0.5 mg-folic acid 1 mg 1 tablet PO DAILY 04/09/23 05/16/23 History tablet Laboratory Tests 05/16/23 05/16/23 23:06 23:07 WBC 14.6 H K/mm3 (4.5-10.0) RBC 3.50 L M/mm3 (4.2-5.4) Hgb 11.1 L D g/dL (12.0-15.0) Hct 33.8 L % (37.0-47.0) MCV 96.6 fl (80-100) MCH 31.7 pg (26-34) MCHC 32.8 g/dl (32-36) RDW 18.4 H % (11.5-14.5) Plt Count 203 k/mm3 (150-375) MPV 10.2 fl (7.4-10.4) Immature Gran % (Auto) 1.5 H % (0-0.5) Neut % (Auto) 80.6 H % (45.5-73.1) Lymph % (Auto) 12.3 L % (18.3-44.2) [place] % (Auto) 5.3 % (2.6-8.5) Eos % (Auto) 0.2 % (0-4.4) Baso % (Auto) 0.1 L % (0.2-1.2) Lymph # (Auto) 1.80 K/mm3 (0.9-3.2) [place] # (Auto) 0.8 H K/mm3 (0.1-0.6) Eos # (Auto) 0.0 K/mm3 (0-0.3) Baso # (Auto) 0.0 K/mm3 (0.0-0.1) Abs Immat Gran (auto) 0.22 H K/mm3 (0.00-0.031) Absolute Neuts (auto) 11.8 H K/mm3 (1.3-6.7) Absolute Nucleated RBC 0.0 K/mm3 (0.0-0.012) Nucleated RBC % 0.0 % (0.0-0.2) RPR Pending Blood Type A Positive Antibody Screen Negative Patient hx anesthesia problems: none Family hx anesthesia problems: none Results Review: All pre-operative results and documents have been reviewed as part of the pre-operative evaluation. [facility] Past Medical History Medical History Family history of irritable bowel syndrome Headache Irritable bowel syndrome with constipation No acute medical problems Family History Family History Grandparent Ovarian cancer Grandparent Acute Crohn's disease Social History Social History Smoking status: Current every day smoker Tobacco type: e-cigarettes/vaping Second hand tobacco smoke exposure: No Substance use: never Other substance usage details: weed daily Lack of Transportation: No Lack of Food: Never True Current Housing: I Have Housing Concerned About Future Housing: No Difficulty Paying Gas/Electric Bills: No Difficulty Paying for Meds: No Currently Unemployed: No Education: High School Diploma/GED Difficulty w/ Childcare or Family Care: No Gender identity (if verbalized by the patient): Female Spiritual care concerns: No Anes - Eval Final PreProcedure Day of Procedure 05/17/23 04:05 Patient weight: obese Heart: regular rate and rhythm Lungs: clear to auscultation Airway: Mallampati scale class II Neurological: alert and oriented ASA classification: III Anesthetic plan: proceed Anesthesia type and monitoring: regional epidural Results Review: All pre-operative results and documents have been reviewed as part of the pre-operative evaluation. Informed Consent: [place] rock
--- NOTE | 2023-05-17 04:46 | WPDANESEPN ---
Anes - Epidural Procedure Note Date/Time: 05/17/23 04:46 Consent: I have discussed with the patient/family/POA, the placement of an epidural catheter and the use of epidural narcotic/local anesthetic for labor analgesia and/or postoperative pain management, including associated potential risks, benefits, complications and side effects. I have discussed alternative methods of labor analgesia and/or postoperative pain management. The patient/family/POA, understand(s) and wish(es) to proceed with epidural narcotic/local anesthetic for labor analgesia and/or postoperative pain management. Time-Out: A pre-procedural Time-Out was completed immediately before starting the procedure and confirmed: Patient Identification, Site, Procedure, Patient Position and the Availability of Requisite Equipment. Clinical Indications: Labor pain Epidural Insertion Note Patient position: sitting Skin prep: chlorhexidine and sterile drape Needle: 18g Tuohy-Schliff Catheter: 20g Unstyleted Technique: Loss of resistance. Level of insertion: L3/4 Catheter skin carolyn (cm): 12 Length in epidural space (cm): 7 Skin anesthesia: lidocaine 1% Test dose: 1.5% Lidocaine with 1:[id number] Epi, negative for subarachnoid Inj and negative for intravascular Inj Time of test dose: 04:32 Observations: tolerated well Complications: none
[2023-05-17] MEDS: PHENYLEPHRINE 1,000 MCG/10 ML SYRINGE 100 MCG IV PUSH ×4 (07:20→07:36)
--- NOTE | 2023-05-17 10:10 | PM.OBPRVD ---
OB - Vaginal Delivery Note Procedure Delivery date: 05/17/23 Induction method: None Delivery augmentation: Rupture of Membranes and Pitocin Delivery monitor: External FHT and Internal Uterine Route of delivery: Episiotomy description: Right Mediolateral (skin, no muscle) Delivery repair: vicryl Specimen: No Quantitative Blood Loss (ml): 85 Anesthesia type: Epidural Disposition: Floor [place] Baby Date of : 05/17/23 Time of : 09:53 Weeks of gestation at delivery: 38 Infant gender: Male Weight (pounds): 8 Weight (ounces): 1 presentation: vertex position: Left Occiput Anterior Placenta delivery description: Spontaneous Cord Vessel Description: 3 Vessels and Nuchal Cord (x1) Narrative: mother and baby skin to skin in stable condition
[2023-05-17] MEDS: OXYTOCIN 30 UNITS/NS 500 ML 30 UNITS/500 ML BAG 125 UNITS IV CONT (10:25)
[2023-05-17] MEDS: WITCH HAZEL 40 PADS 1 PAD TOPICAL (11:47)
[2023-05-17] MEDS: IBUPROFEN 600 MG TABLET PO ×2 (11:47→19:00)
[2023-05-17] MEDS: BENZOCAINE 20% AER SPR (*SP) 56 GM CAN 1 SPRAY TOPICAL (11:47)
[2023-05-17] MEDS: ACETAMINOPHEN 325 MG TABLET 650 MG PO ×2 (11:48→19:00)
--- NOTE | 2023-05-17 12:48 | OBPPTRN ---
Patient transferred to post room #290 via wheelchair. Support person present. Oriented to unit, room, information board, rooming in, admission packet and security measures. Patient verbalizes understanding.
[2023-05-17 13:16] LABS: Rapid Plasma Reagin Non-Reactive (NonReactive)
[2023-05-17] MEDS: SIMETHICONE 80 MG TAB.CHEW PO (14:11)
[2023-05-17] MEDS: DOCUSATE SODIUM 100 MG CAPSULE PO (14:11)
[2023-05-17] MEDS: CYCLOBENZAPRINE HCL 10 MG TABLET PO (14:49)
[2023-05-17] MEDS: HYDROcodone/acetaminophen (*CRX) 5-325 MG TABLET 1 TAB PO (23:50)
[2023-05-18 00:32] VITALS: BP 127/79; PULSE 64; RESP 18; TEMP 36.7; O2SAT 99
[2023-05-18] MEDS: IBUPROFEN 600 MG TABLET PO ×2 (01:30→08:53)
[2023-05-18] MEDS: HYDROcodone/acetaminophen (*CRX) 5-325 MG TABLET 1 TAB PO (04:29)
[2023-05-18] MEDS: CYCLOBENZAPRINE HCL 10 MG TABLET PO ×2 (05:03→11:55)
[2023-05-18 05:14] LABS: Hematocrit 30.6 % (37.0-47.0); Hemoglobin 9.6 g/dL (12.0-15.0)
[2023-05-18] MEDS: fentaNYL CITRATE INJ (*CRX) 100 MCG/2 ML VIAL 50 MCG IV PUSH (05:25)
[2023-05-18] MEDS: MULTIVIT/MIN/PREN/FOL AC/IRON TABLET 1 TAB PO (08:53)
[2023-05-18] MEDS: busPIRone HCL 5 MG TABLET PO (08:53)
[2023-05-18] MEDS: DOCUSATE SODIUM 100 MG CAPSULE PO ×2 (08:53→16:39)
[2023-05-18] MEDS: POLYSACCHARIDE IRON COMPLEX 150 MG CAPSULE PO ×2 (08:53→16:39)
[2023-05-18] MEDS: ESCITALOPRAM OXALATE 10 MG TABLET 20 MG PO (08:53)
--- NOTE | 2023-05-18 09:11 | PM.OBPNVD ---
OB - PN: Subj Subjective Date/time seen: 05/18/23 09:11 Interval history: PPD#1 Headache continues starting in back of neck, worse with sitting or standing, improved when laying flat on back No visual symptoms or photophobia No improvement with fentanyl and flexeril overnight, will have anesthesia assess OB - PN: Obj Data Labs 05/18/23 04:25 Labs: Laboratory Results - last 24 hr 05/16/23 05/18/23 23:07 04:25 Hgb 9.6 L Hct 30.6 L RPR Non-reactive OB - PN A/P Plan day: 1 Plan: routine care Comments: will have anesthesia assess for spinal headache given persistence despite multiple medications overnight and positional quality of headache. Time Spent With Patient Time: Total time spent is greater than 50% in coordination of care (as documented) at patient's floor/unit and/or counseling patient: Review of Systems Review of Systems: All systems reviewed & are unremarkable except as noted in HPI and below Exam Const: General: awake and in distress (2/2 headache) mild Resp: Effort & Inspection: normal respiratory effort GI: GI Palp: Yes Soft to palpation
--- NOTE | 2023-05-18 09:51 | PC.NURSE ---
Report received from primary RN that patient plans to bottle feed formula and patient is having a lot of pain, especially a headache when she sits up. Primary RN will confirm if mother wants to protect her milk supply or chooses to exclusively formula feed with a bottle.
[2023-05-18] MEDS: HYDROcodone/acetaminophen (*CRX) 5-325 MG TABLET 2 TAB PO ×2 (10:58→16:39)
--- NOTE | 2023-05-18 15:33 | P.PCNANE_ITS ---
Anes - Epidural Procedure Note Date/Time: 05/18/23 15:10 Consent: I have discussed with the patient/family/POA, the placement of an epidural catheter and the use of epidural narcotic/local anesthetic for labor analgesia and/or postoperative pain management, including associated potential risks, benefits, complications and side effects. I have discussed alternative methods of labor analgesia and/or postoperative pain management. The patient/family/POA, understand(s) and wish(es) to proceed with epidural narcotic/local anesthetic for labor analgesia and/or postoperative pain management. Time-Out: A pre-procedural Time-Out was completed immediately before starting the procedure and confirmed: Patient Identification, Site, Procedure, Patient Position and the Availability of Requisite Equipment. Clinical Indications: Pt evaluated by Soheila Nicole CRNA after presenting with signs and symptoms of PDPH post epidural placement for Labor. Pt indicated SANCHEZ that was positional as well as photophobia and nuchal rigidity. At the time of initial evaluation, the pt had opted for traditional treatment options including increased caffeine intake and increased fluid intake. Upon further evaluation while rounding, the pt opted for a Blood patch that was performed by Dr Rodriguez and my self with out incident. Pt reported immediate relief of symptoms related to the PDPH, however she continued having spasms on the right side of her neck. We explained that the neck spasms are not as a result of the dural puncture and informed the nurse that other pain control measures would need to be instituted by her admitting physician Epidural Insertion Note Patient position: sitting Skin prep: chlorhexidine and sterile drape Needle: 17g Tuohy Technique: Loss of resistance. 15 ml of blood injected into space until symptoms resolved. Level of insertion: L2/3 Skin anesthesia: lidocaine 1% Test dose: 1.5% Lidocaine with 1:[id number] Epi, negative for subarachnoid Inj and n egative for intravascular Inj Time of test dose: 04:32 Observations: tolerated well Complications: none
--- NOTE | 2023-05-18 15:34 | WPDANESEBPP ---
Anes - Epidural Blood Patch PN Date/Time: 05/18/23 15:34 Consent: I have discussed with the patient/family/POA, the rationale of a lumbar epidural autologous blood patch for the treatment of post-dural puncture headache (spinal headache), including associated potential risks, benefits, complications and side effects. I have also discussed more conservative treatment options such as intravenous hydration, caffeine and non-prescription analgesics. The patient/family/POA, understand(s) and wish(es) to proceed with epidural autologous blood patch as treatment for the patient's post-dural puncture headache. Time-Out: A pre-procedural Time-Out was completed immediately before starting the procedure and confirmed: Patient Identification, Site, Procedure, Patient Position and the Availability of Requisite Equipment. Clinical Indications: PDPH Epidural Insertion Note Patient position: sitting Skin prep: chlorhexidine and sterile drape Needle: 18 gauge Tuohy-Schliff Technique: loss of resistance Skin anesthesia: lidocaine 1% Observations: tolerated well and other (headache resolved, but neck pain did not which is correlating more with muscle spasm in neck.)
[2023-05-18] MEDS: KETOROLAC 15 MG/ML VIAL (*BKC) IV PUSH (15:40)
--- NOTE | 2023-05-18 16:10 | WPDANLDPN2 ---
[facility]-Prog Note L&D Date/Time: 05/18/23 16:10 Neuro status: Neuro function grossly intact. Cardiovascular status: normal Respiratory status: normal Airway patency: baseline Mental status: baseline Post-Op hydration status: normal Vital Signs: Last Vital Signs Temp 36.7 C 05/18/23 00:32 Pulse 64 05/18/23 00:32 Resp 18 05/18/23 00:32 BP 127/79 05/18/23 00:32 Pulse Ox 99 05/18/23 00:32 O2 Del Method Room Air 05/17/23 19:00 Pain score (VAS): 10 Post-procedural complaints: other (headache, neck pain) Patient feedback: Patient stated headache that was 10/10 when sitting up and tolerable when laying down. Also complains of horrible neck pain and can't flex her neck forward. A PDPH was performed which relieved the headache however her neck pain remained along with right arm pain. Both of the arm and neck pain sound more musculoskeletal, probably muscle spasm in neck. She was encouraged to continue large amounts of IV fluid and pain medication regimen as prescribed per Dr. Diaz
[2023-05-18 18:59] VITALS: BP 124/81; PULSE 87; RESP 18; TEMP 36.4; O2SAT 98
[2023-05-19] MEDS: IBUPROFEN 600 MG TABLET PO ×2 (07:18→14:05)
[2023-05-19] MEDS: CYCLOBENZAPRINE HCL 10 MG TABLET PO (07:19)
--- NOTE | 2023-05-19 07:38 | PM.OBPNVD ---
OB - PN: Subj Subjective Date/time seen: 05/19/23 07:38 Interval history: PPD#2 Headache continues starting in back of neck, worse with sitting or standing, improved when laying flat on back, blood patch done and symptoms resolving No visual symptoms or photophobia baby doing well plan d/c home OB - PN: Obj Data Labs 05/18/23 04:25 OB - PN A/P Plan day: 2 Plan: routine care and discharge home Time Spent With Patient Time: Total time spent is greater than 50% in coordination of care (as documented) at patient's floor/unit and/or counseling patient: Review of Systems Review of Systems: All systems reviewed & are unremarkable except as noted in HPI and below Exam Const: General: cooperative and healthy appearing Resp: Effort & Inspection: normal respiratory effort Cardio: Rate: regular rate GI: Other: soft Skin: General skin exam: normal color Neuro: General: patient oriented x3 Extrem: Right lower extremity: normal to inspection Left lower extremity: normal to inspection Psych: Appearance: grossly normal
--- NOTE | 2023-05-19 07:42 | PM.OBDSVD ---
DS: Admitting Diagnosis Discharge Date 05/19/23 Admitting Diagnosis Labor DS: Discharge Diagnosis Discharge Diagnosis (1) Vaginal delivery: Code(s): O80 - Encounter for full-term uncomplicated delivery Status: Acute OB - DS: Summary OB Procedures : None OB Procedures Intrapartum: Spontaneous Vag Delivery OB Procedures: : None Peripartum Data Episiotomy description: Right Mediolateral (skin, no muscle) Time Spent with Patient Time attestation: Total time spent providing and/or coordinating discharge services: Discharge Plan Discharge Attending physician on discharge: Elisha Arreola Discharging Clinician: Nelli Prather Patient Disposition: Home, Self-Care Activity: pelvic rest Diet: regular Patient Instructions: Antibiotic Form Stand Alone Forms: General Discharge Information Follow-up/Referrals: Nelli Prather CNM [Certified Nurse Envelope Folder] - 4 Weeks Discharge Medications: New cyclobenzaprine 10 mg Tablet 10 mg PO Q8H PRN (Reason: Muscle Spasm) Qty: 30 0RF ibuprofen 600 mg Tablet 600 mg PO Q6H PRN (Reason: Cramping) Qty: 30 0RF Continued vitamin D53-[id number] acid 0.5-1 mg Tablet 1 tablet PO DAILY escitalopram oxalate 10 mg tablet 20 mg PO DAILY buspirone 5 mg tablet 5 mg PO DAILY metoprolol tartrate 25 mg tablet 25 mg PO DAILY PNV cmb#[id number]-ferrous fumarate-FA [] 28 mg iron- 800 mcg Tablet 1 tablet PO DAILY Date of admission: 05/16/23 22:14 Primary Care Provider: PHYSICIAN,AUTOMOTIVE ARTIST Admitting Provider: Elisha Arreola Attending physician on admission: Elisha Arreola Condition: Stable
[2023-05-19 08:10] VITALS: BP 107/54; PULSE 76; RESP 16; TEMP 36.2; O2SAT 100
[2023-05-19] MEDS: ESCITALOPRAM OXALATE 10 MG TABLET 20 MG PO (09:47)
[2023-05-19] MEDS: DOCUSATE SODIUM 100 MG CAPSULE PO (09:48)
[2023-05-19] MEDS: MULTIVIT/MIN/PREN/FOL AC/IRON TABLET 1 TAB PO (09:48)
[2023-05-19] MEDS: busPIRone HCL 5 MG TABLET PO (09:48)
[2023-05-19] MEDS: POLYSACCHARIDE IRON COMPLEX 150 MG CAPSULE PO (09:48)
[2023-05-19] MEDS: ACETAMINOPHEN 325 MG TABLET 650 MG PO (11:25)
[2023-05-19 12:30] VITALS: BP 120/73; PULSE 78; RESP 18; TEMP 36.7
--- NOTE | 2023-05-19 12:37 | PCCCNOTE ---
Care Coordination Consult: Met with pt, sig other (FOB) Harris, and pt.'s mother Emely. Pt. lives at home with Harris. This is her first child. Patient has family support. Pt. reports marijuana use during , denies a reliance on substance. Patient and baby were not tested. Pt. denies any substance use resources at this time. Pt. plans to supplement and has received formula by RN. They have all necessary equipment for the baby at home. Plan to utilize [place] services at discharge. resources provided. Pt. reports she does not have paperwork for POA, states her next of kin is her mother Emely. CC reports this is appropriate as at this time per the [facility], unless she is or has a child over the age of 18, then her mother is her POA/next of kin. Offered Advance Directive paperwork but she declined. When asked pt. states she does not have a guardianship with her mother, Emely also denies that there is a guardianship in place for pt. Pt. and family deny any further needs. Discharge preference is home.
== END 2023-05-19 15:10 | disposition home or self-care (01) | DRG 560 ==
LOC: ANHLDR 22:45 → ANHOB2 05-17 14:07
PROVIDERS: Admitting Provider Obstetrics & Gynecology; Referring Provider Advanced Practice Midwife; Visit Provider Obstetrics & Gynecology
DX: O69.81X0 Labor and delivery complicated by cord around neck, without compression, not applicable or unspecified (principal); O99.02 Anemia complicating childbirth; Z3A.38 38 weeks gestation of pregnancy; Z37.0 Single live birth
CPT/HCPCS: 36415; 84112; 85014; 85018; 85025; 86592; 86850; 86900; 86901; A9270; J1885; J2371; J2590; J2795; J3010; J7120

== ENCOUNTER 2023-08-25 11:34 | Outpatient (CLI) | payer OTHER, SELFPAY ==
--- NOTE | 2023-08-25 11:44 | ECG_ITS ---
Measurements Intervals [place] Rate: 86 P: 44 TX: 120 QRS: 78 QRSD: 83 T: 54 QT: 388 QTc: 466 Interpretive Statements SINUS RHYTHM WITH MARKED SINUS ARRHYTHMIA BASELINE ARTIFACT- I, II, III, AVR, AVL, AVF NORMAL ECG NO PREVIOUS ECG AVAILABLE FOR COMPARISON Electronically Signed On 08-25-2023 12:05:15 CDT by Ethan Rodrigez D.O.
== END 2023-08-25 11:35 | disposition home or self-care (01) ==
LOC: ANHSURGERY 11:43
PROVIDERS: PCP Emergency Medicine; Visit Provider Obstetrics & Gynecology
DX: I49.9 Cardiac arrhythmia, unspecified (principal); Z01.818 Encounter for other preprocedural examination
CPT/HCPCS: 93005

== ENCOUNTER 2023-09-01 00:39 | Day surgery (SDC) | payer OTHER, SELFPAY ==
[2023-08-23 14:34] VITALS: BMI 36.8
--- NOTE | 2023-08-23 14:36 | PC.NURSE ---
Report to the Outpatient Waiting Room, entrance under the green pavilion located off [facility], at time _0800_ on date _[id number]_. Planned Procedure Time: _1000_. Time changes happen often and if your time is changed the preop area will call you the afternoon before. - You and your visitor will be asked to self-screen and do not enter if you have any COVID symptoms. - A mask is optional within the hospital at this time. Patients may have clear liquids (water, carbonated beverages, clear teas, apple juice) until 3 hours prior to surgery with a maximum of 20 ounces. - No food from midnight until time of surgery Take the following medications with a SIP of water the morning of surgery: ___Buspirone, Metoprolol, Lexapro and Adderol DO NOT STOP ANY OF YOUR OTHER PRESCRIPTION MEDICATIONS PRIOR TO SURGERY ?EXCEPT THE FOLLOWING Medications to discontinue per physician Vitamins Date to take last [id number] Please no make-up, nail italian, hairspray, perfume, deodorant, or body powder the day of surgery. No jewelry (including any body piercings) or valuables the day of surgery, leave them at home. Please take a shower or bath the night before, or the morning of, surgery with an antibacterial soap. Wear comfortable, loose fitting clothing. - Jewelry must be removed prior to entering the operating room. Rings and piercings that are not removed may be cut off. - The hospital will not accept responsibility for valuables. - Please leave all valuables, including medications, at home the day of surgery. If you are going home after surgery, a licensed medical driver must drive you home. - NO public transportation without another adult if you receive anesthesia. - We recommend that an adult stay with you for 24 hours following discharge. - We also recommend that you do not drive, make important decision, drink alcoholic beverages, or take any drugs that were not prescribed by your health care provider for at least 24 hours after your discharge time. Follow any additional instructions given to you from your surgeon. If you or anyone in your household have experienced Covid symptoms in the past week, please notify your surgeon or the nurse liaison at the phone number below for possible testing. Telephone instructions given to _Varsha__and asked if any additional questions and then verbalized understanding. Patient advised to call surgeon office or pre surgery nurse liaison [phone] if any additional questions.
--- NOTE | 2023-08-31 13:21 | P.PNAN_ITS ---
Anes - Initial Pre Proc Eval Procedure: Operation Date: 09/01/23 10:00 Proposed Procedures p Diagnostic Laparoscopy - Elisha Arreola MD Date/Time: 08/31/23 13:21 Surgeon: Elisha Arreola MD Pre Op Diagnosis: Pelvic Pain Patient Data Age: 23 Gender: F Height: 1.6 m Weight: 94.5 kg Allergies Allergy/AdvReac Type Severity Reaction Status Date / Time Mushroom Allergy Unknown BURNING IN Uncoded 09/01/23 09:44 THROAT Home Medications Medication Instructions Recorded Confirmed Type escitalopram oxalate 10 mg tablet 20 mg PO DAILY 04/21/22 09/01/23 History buspirone 5 mg tablet 5 mg PO DAILY 02/08/23 09/01/23 History metoprolol tartrate 25 mg tablet 25 mg PO DAILY 02/08/23 09/01/23 History vitamin B12 0.5 mg-folic acid 1 mg 1 tablet PO DAILY 04/09/23 09/01/23 History tablet dextroamphetamine-amphetamine 10 10 mg PO BID 08/23/23 09/01/23 History mg tablet ergocalciferol (vitamin D2) 1,250 1,250 mcg PO WEEKLY 08/23/23 09/01/23 History mcg (50,000 unit) capsule Patient hx anesthesia problems: none Family hx anesthesia problems: none Results Review: All pre-operative results and documents have been reviewed as part of the pre- operative evaluation. [facility] Past Medical History Medical History (Updated 09/01/23 @ 09:54 by Garcia Rodriguez DO) ADHD Anemia Anxiety Cardiac arrhythmia possibly SVT? Family history of irritable bowel syndrome GERD (gastroesophageal reflux disease) Headache Irritable bowel syndrome with constipation No acute medical problems Palpitations Family History Family History Grandparent Ovarian cancer Grandparent Acute Crohn's disease Social History Social History Smoking status: Current every day smoker Tobacco type: e-cigarettes/vaping Second hand tobacco smoke exposure: No Substance use: never Substance use type: marijuana Other substance usage details: Daily Do You Feel Safe in your Home?: Yes Lack of Transportation: No Lack of Food: Never True Current Housing: I Have Housing Concerned About Future Housing: No Difficulty Paying Gas/Electric Bills: No Difficulty Paying for Meds: No Currently Unemployed: No Education: High School Diploma/GED Difficulty w/ Childcare or Family Care: No Living arrangements: with family Gender identity (if verbalized by the patient): Female Spiritual care concerns: No Anes - Eval Final PreProcedure Day of Procedure 08/31/23 13:21 Patient weight: obese Heart: regular rate and rhythm Lungs: clear to auscultation Airway: Mallampati scale class II Neurological: alert and oriented Last oral intake: >/= 8 hours ASA classification: III Emergent: no Anesthetic plan: proceed Anesthesia type and monitoring: general ETT and standard monitoring Results Review: All pre-operative results and documents have been reviewed as part of the pre-operative evaluation. Informed Consent: The patient's anesthetic plan and its attendant risks and benefits were discussed with the patient/family/POA. Questions were solicited and answers provided to the satisfaction of the patient/family/POA.
[2023-09-01] VITALS (9 sets, daily range): BP systolic 112–132; BP diastolic 59–78; PULSE 56–71; RESP 12–25; TEMP 36.2–36.6; O2SAT 98–100
[2023-09-01] MEDS: ACETAMINOPHEN 500 MG TABLET 1000 MG PO (09:45)
[2023-09-01] MEDS: LACTATED RINGERS 1,000 ML 30 ML IV CONT ×2 (09:45→12:47)
[2023-09-01] MEDS: KETOROLAC 15 MG/ML VIAL (*BKC) IV PUSH (09:46)
[2023-09-01] MEDS: SCOPOLAMINE 1 MG PATCH 1 PATCH TRANSDERM (09:58)
[2023-09-01] MEDS: MIDAZOLAM HCL (*CRX) 2 MG/2 ML VIAL IV PUSH (10:33)
--- NOTE | 2023-09-01 11:06 | PM.IMHP ---
H&P: HPI History of Present Illness Date/Time: 09/01/23 11:06 Chief Complaint: Pelvic pain Narrative: 23-year-old female with multiple problems. She reports problems with gastroesophageal reflux disease, pelvic pain painful urination, difficulty defecating. We spent most of our time talking about pelvic pain. We made a decision to perform surgery. We spent 40 minutes [id number]. More than 50% was counseling. We agreed to diagnostic laparoscopy. Patient has a strong family history of endometriosis. She is findings on ultrasound consistent with pelvic abnormality that include abnormal right fallopian tube. She is fluid in the pelvis. We will check a urinalysis and a urine culture. she agreed see her GI about her defecation issue. patient understands the risks of the procedure. She understands the procedure very well. She understands that injuries may occur to the procedure that resulted in hospitalization, more surgery, and severe illness. She understands risk of hemorrhage and infection. She denies any nausea, vomiting, fever, chills. She denies any chest pain shortness of breath Review of Systems Review of Systems: All systems reviewed & are unremarkable except as noted in HPI and below Constitutional: Constitutional: Denies chills, Denies fatigue, Denies fever(s) and Denies weakness Eyes: Eyes: Denies blurry vision, Denies change in vision, Denies loss of peripheral vision, Denies loss of vision, Denies other visual disturbances and Denies eye pain ENT: Denies vertigo, Denies dizziness, Denies hearing loss, Denies mouth pain, Denies nasal obstruction, Denies neck mass and Denies neck pain Cardiovascular: Cardiovascular: Denies chest pain, Denies diaphoresis, Denies syncope, Denies leg edema and Denies dyspnea Respiratory: Respiratory: Denies chest congestion, Denies cough, Denies hemoptysis, Denies dyspnea and Denies wheezing Gastrointestinal: Gastrointestinal: Denies abdominal pain, Denies constipation, Denies diarrhea, Denies nausea and Denies vomiting Genitourinary: Genitourinary: Denies hematuria, Denies change in libido, Denies nocturia, Denies genital lesions, Denies flank pain and Denies urinary urgency Musculoskeletal: Musculoskeletal: Denies abnormal gait, Denies back pain, Denies myalgias, Denies arthralgias, Denies joint swelling, Denies muscle weakness and Denies neck pain Integumentary/Breasts: Skin/Breast: Denies swelling, Denies breast pain, Denies breast mass, Denies dry skin, Denies nipple discharge, Denies unusual bruising and Denies jaundice Neurologic: Denies Neuro-related abnormal movements, Denies Abnormal speech present, Denies abnormal gait, Denies behavioral changes, Denies confusion, Denies vertigo, Denies dizziness, Denies syncope, Denies loss of vision, Denies memory loss, Denies convulsions and Denies weakness Psychiatric: Psychiatric: Denies abnormal sleep pattern, Denies behavioral changes, Denies change in libido, Denies confusion, Denies depression, Denies anhedonia and Denies memory loss Endocrine: Endocrine: Reports no additional endocrine complaints, Denies change in libido and Denies fatigue Hematologic/Lymphatic: Hematologic/Lymphatic: Reports no additional hematologic/lymphatic complaints Allergic/Immunologic: Allergic/Immunologic: Reports no additional allergic/immunologic complaints and Denies wheezing PMFSH Past Medical History Medical History (Updated 09/01/23 @ 11:07 by Elisha Arreola MD) ADHD Anemia Anxiety Cardiac arrhythmia possibly SVT? Family history of irritable bowel syndrome GERD (gastroesophageal reflux disease) Headache Irritable bowel syndrome with constipation No acute medical problems Palpitations Family History Family History Grandparent Ovarian cancer Grandparent Acute Crohn's disease Social History Social History Smoking status: Current every
--- NOTE | 2023-09-01 11:09 | WPDHPUPDATE1 ---
History and Physical Update Update Date/Time: 09/01/23 11:09 History and Physical has been reviewed, including an updated exam of the patient. There are NO changes in the patient's condition. Risks, benefits, and alternatives have been discussed and questions answered. Patient agrees to proceed with procedure.
[2023-09-01] MEDS: fentaNYL CITRATE INJ (*CRX) 100 MCG/2 ML VIAL 25 MCG IV PUSH ×4 (12:58→13:14)
--- NOTE | 2023-09-01 13:05 | W.PM.PROC2 ---
Procedure Note - Detailed Date of Procedure 09/01/23 Pre-op Diagnosis Pelvic Pain Post-op Diagnosis Same ( possible retrograde menstruation) Procedure Performed Diagnostic laparoscopy Surgeon Elisha Arreola MD Anesthesia General Indications Pelvic pain Findings normal appearing pelvis. There is a thin layer of blood throughout the the pelvis. Possible greater retrograde menstruation, possible bleeding from a corpus luteum cyst. There was a corpus luteum cyst present. It did bleed with a little bit of manipulation to look under the ovary. It was cauterized and hemostatic Description of Procedure The patient was taken to the operating room. She was prepped and draped in the dorsal lithotomy position after induction general anesthesia. A 5 mm incision was made with a scalpel on the abdominal skin in the left upper quadrant of the abdomen. A 5 mm trocar was inserted into the intra-abdominal cavity under direct visualization the scope. In the same fashion a 5 mm left lower quadrant trocar was inserted and a 5 mm infraumbilical trocar was inserted. evaluation of the pelvis completed. The ovarian fossa and posterior cul-de-sac were examined thoroughly. Manipulation of the right ovary caused bleeding from a corpus luteum cyst. It was cauterized. It was hemostatic at the end of the procedure. The pelvis was irrigated. The pneumoperitoneum was reduced. The trocars were removed. Skin was closed with subcuticular 4 micro. The patient's incisions were covered with Dermabond. She was taken recovery room in stable condition. Sponge lap and needle counts were correct x2. Pathology None sent Complications No immediate complications Condition Stable Disposition Same day
[2023-09-01] MEDS: oxyCODONE HCL (*CRX) 5 MG TAB IR PO (13:45)
== END 2023-09-01 14:30 | disposition home or self-care (01) ==
PROVIDERS: PCP Emergency Medicine; Visit Provider Obstetrics & Gynecology
PROC: (CPT 49320; principal; 2023-09-01 10:00)
DX: N83.11 Corpus luteum cyst of right ovary (principal); F90.9 Attention-deficit hyperactivity disorder, unspecified type; F41.9 Anxiety disorder, unspecified; F17.290 Nicotine dependence, other tobacco product, uncomplicated; F12.90 Cannabis use, unspecified, uncomplicated; E66.9 Obesity, unspecified; Z68.37 Body mass index [BMI] 37.0-37.9, adult
CPT/HCPCS: 58662; A9270; J1100; J1885; J2250; J2405; J2704; J3010; J7120

== ENCOUNTER 2023-11-25 01:41 | Day surgery (SDC) | payer OTHER, SELFPAY ==
[2023-10-20 08:51] VITALS: BMI 37.0
--- NOTE | 2023-11-09 14:03 | PC.NURSE ---
Called and spoke with patient regarding new procedure date and time. Updated patients medication list. Pt denies any changes to health history. All questions answered at this time.
[2023-11-25 13:57] VITALS: BP 121/73; PULSE 88; RESP 18; TEMP 36.3; O2SAT 99; BMI 38.9
[2023-11-25] MEDS: LACTATED RINGERS 1,000 ML 150 ML IV CONT (14:09)
--- NOTE | 2023-11-25 14:13 | WPDANESEPPF ---
Anes - Initial Pre Proc Eval Procedure: Operation Date: 11/25/23 15:00 Proposed Procedures p Esophagogastroduodenoscopy - Brad Barron MD Date/Time: 11/25/23 14:13 Surgeon: Brad Barron MD Pre Op Diagnosis: GERD, Dysphagia Patient Data Age: 23 Gender: F Height: 1.6 m Weight: 99.7 kg Last Vital Signs Temp 97.4 F L 11/25/23 13:57 Pulse 88 11/25/23 13:57 Resp 18 11/25/23 13:57 BP 121/73 11/25/23 13:57 Pulse Ox 99 11/25/23 13:57 O2 Del Method Room Air 11/25/23 13:57 Allergies Allergy/AdvReac Type Severity Reaction Status Date / Time Mushroom Allergy Unknown BURNING IN Uncoded 11/25/23 13:53 THROAT Home Medications Medication Instructions Recorded Confirmed Type dextroamphetamine-amphetamine 10 20 mg PO BID 08/23/23 11/25/23 History mg tablet risperidone 1 mg tablet 1 mg PO BID 10/26/23 11/25/23 History fluoxetine 20 mg capsule 20 mg PO DAILY 11/09/23 11/25/23 History etonogestrel 0.12 mg-ethinyl 1 vag ring vaginal ONCE #3 ea 11/10/23 11/25/23 Rx estradiol 0.015 mg/24 hr vaginal ring (NuvaRing) metoprolol succinate 25 mg 12.5 mg PO DAILY #45 tabs 11/18/23 11/25/23 Rx tablet,extended release 24 hr Patient hx anesthesia problems: none Family hx anesthesia problems: none Results Review: All pre-operative results and documents have been reviewed as part of the pre-operative evaluation. [facility] Past Medical History Medical History ADHD Anemia Anxiety Cardiac arrhythmia possibly SVT? Elevated liver enzymes Encounter for removal of intrauterine contraceptive device Family history of irritable bowel syndrome GERD (gastroesophageal reflux disease) Headache Irritable bowel syndrome with constipation No acute medical problems Obesity affecting , antepartum Palpitations Surgical History Surgical History H/O laparoscopy Family History Family History Grandparent Ovarian cancer Grandparent Acute Crohn's disease Social History Social History Smoking status: Former smoker Tobacco type: e-cigarettes/vaping Second hand tobacco smoke exposure: No Alcohol intake: never Substance use: current Substance use type: marijuana Other substance usage details: Daily Do You Feel Safe in your Home?: Yes Lack of Transportation: No Lack of Food: Never True Current Housing: I Have Housing Concerned About Future Housing: No Difficulty Paying Gas/Electric Bills: No Difficulty Paying for Meds: No Currently Unemployed: No Education: High School Diploma/GED Difficulty w/ Childcare or Family Care: No Living arrangements: other Occupation/Education: unemployed Gender identity (if verbalized by the patient): Female Sexual Orientation (if Verbalized by the Patient): Straight or Heterosexual Spiritual care concerns: No Anes - Eval Final PreProcedure Day of Procedure 11/25/23 14:13 Patient weight: obese Heart: regular rate and rhythm Lungs: clear to auscultation Airway: Mallampati scale class II and special considerations Neurological: alert and oriented Last oral intake: >/= 8 hours ASA classification: III Emergent: no Anesthetic plan: proceed Anesthesia type and monitoring: general and standard monitoring Results Review: All pre-operative results and documents have been reviewed as part of the pre-operative evaluation. Smoker, vapes almost every hour all day, denies MELE. GERD/dysphagia, now for EGD. Informed Consent: The patient's anesthetic plan and its attendant risks and benefits were discussed with the patient/family/POA. Questions were solicited and answers provided to the satisfaction of the patient/family/POA.
--- NOTE | 2023-11-25 14:51 | PM.HPGS ---
History of Present Illness History of Present Illness Consent: Risks, benefits, and alternatives have been discussed and questions answered. Patient agrees to proceed with procedure. Chief complaint: GERD, Dysphagia Narrative: Varsha Keller is a 23 year old female with dysphagia, had EGD in the past with gastric ulcers , she is not taking any ppi Review of Systems Review of Systems: All systems reviewed & are unremarkable except as noted in HPI and below PMFSH Past Medical History Medical History (Updated 11/25/23 @ 14:52 by Brad Barron MD) ADHD Anemia Anxiety Cardiac arrhythmia possibly SVT? Dysphagia Elevated liver enzymes Encounter for removal of intrauterine contraceptive device Family history of irritable bowel syndrome GERD (gastroesophageal reflux disease) Headache Irritable bowel syndrome with constipation No acute medical problems Obesity affecting , antepartum Palpitations Surgical History Surgical History H/O laparoscopy Family History Family History Grandparent Ovarian cancer Grandparent Acute Crohn's disease Social History Social History Smoking status: Former smoker Tobacco type: e-cigarettes/vaping Second hand tobacco smoke exposure: No Alcohol intake: never Substance use: current Substance use type: marijuana Other substance usage details: Daily Do You Feel Safe in your Home?: Yes Lack of Transportation: No Lack of Food: Never True Current Housing: I Have Housing Concerned About Future Housing: No Difficulty Paying Gas/Electric Bills: No Difficulty Paying for Meds: No Currently Unemployed: No Education: High School Diploma/GED Difficulty w/ Childcare or Family Care: No Living arrangements: other Occupation/Education: unemployed Gender identity (if verbalized by the patient): Female Sexual Orientation (if Verbalized by the Patient): Straight or Heterosexual Spiritual care concerns: No Meds Home Medications and Allergies Home Medications Medication Instructions Recorded Confirmed Type dextroamphetamine-amphetamine 10 20 mg PO BID 08/23/23 11/25/23 History mg tablet risperidone 1 mg tablet 1 mg PO BID 10/26/23 11/25/23 History fluoxetine 20 mg capsule 20 mg PO DAILY 11/09/23 11/25/23 History etonogestrel 0.12 mg-ethinyl 1 vag ring vaginal ONCE #3 ea 11/10/23 11/25/23 Rx estradiol 0.015 mg/24 hr vaginal ring (NuvaRing) metoprolol succinate 25 mg 12.5 mg PO DAILY #45 tabs 11/18/23 11/25/23 Rx tablet,extended release 24 hr Allergies Allergy/AdvReac Type Severity Reaction Status Date / Time Mushroom Allergy Unknown BURNING IN Uncoded 11/25/23 13:53 THROAT Vital Signs Vital Signs - 24 hr 11/25/23 13:57 Temperature 97.4 F L Pulse Rate 88 Respiratory Rate 18 Blood Pressure 121/73 Pulse Oximetry 99 Oxygen Delivery Room Air Exam Const: General: comfortable and no acute distress HENMT: Face/Nose/Sinus: Normal nares present Eyes: General: appearance normal, both eyes and all related structures Neck: Neck: no JVD Resp: Auscultation: clear to auscultation bilaterally Cardio: Rate: regular rate Rhythm: regular rhythm GI: Inspection: non-distended GI Palp: Yes Soft to palpation Skin: General skin exam: normal color Neuro: General: gait normal Speech: normal speech Extrem: General: normal to inspection Psych: Mental Status: mental status grossly normal Assessment and Plan Assessment and plan (1) Dysphagia: Code(s): R13.10 - Dysphagia, unspecified Status: Acute Assessment and Plan: egd
[2023-11-25 15:13] VITALS: BP 118/59; PULSE 77; RESP 23; O2SAT 100
[2023-11-25 15:23] VITALS: BP 119/64; PULSE 74; RESP 24; O2SAT 100
[2023-11-25 15:33] VITALS: BP 120/68; PULSE 76; RESP 22; O2SAT 100
== END 2023-11-25 15:40 | disposition home or self-care (01) ==
PROVIDERS: PCP Emergency Medicine; Visit Provider Internal Medicine Gastroenterology
PROC: 0DJ08ZZ Inspection of Upper Intestinal Tract, Via Natural or Artificial Opening Endoscopic (ICD-10-PCS; CPT 43235; principal; 2023-11-25 15:00)
DX: R13.10 Dysphagia, unspecified (principal); F12.90 Cannabis use, unspecified, uncomplicated; F90.9 Attention-deficit hyperactivity disorder, unspecified type; F41.9 Anxiety disorder, unspecified; Z87.891 Personal history of nicotine dependence
CPT/HCPCS: 43239; 88305; J2704; J7120

== ENCOUNTER 2023-12-30 08:24 | Outpatient (CLI) | payer OTHER, SELFPAY ==
--- NOTE | 2024-01-10 16:02 | WPDHOMESLEEP ---
Sleep Study - Home Unattended Date of Study: 12/30/23 Ordering Provider: Ethan Rodrigez DO Interpreting Provider: Caroline Hernadez DO Home Sleep Study Type: Watch PAT Height: 1.6 m Weight: 99.79 kg Body Mass Index: 38.9 Neck Circumference (inches): 14 [place]: 12 Reason for Sleep Study Cardiac arrhythmia Sleep History The patient is a 23-year-old female that had a sleep study ordered by her marking devices assembler for evaluation of sleep apnea. The patient denies awakening from sleep short of breath. She constantly awakens at night with heartburn, belching or cough. She rarely snores loudly enough that others complain. She constantly has trouble sleeping when she has a cold. She denies waking up gasping for air throughout the night. She rarely has breathing problems at night observed by herself or others. She occasionally sweats excessively at night. She occasionally has heart palpitations or irregular heartbeats during the night. She frequently falls asleep during the day but never while driving. She occasionally experiences loss of muscle tone when extremely emotional. She rarely has trouble at school or work due to sleepiness. She occasionally feels unable to move while waking up or falling asleep. She constantly experiences vivid dreamlike scenes upon awakening or falling asleep. She rarely feels afraid of going to sleep. She occasionally has nightmares. She constantly remembers her dreams. She constantly has thoughts racing through her mind. She occasionally feels sad or depressed. She constantly has anxiety. She occasionally has muscular tension. She occasionally notices parts of her body jerk. She constantly kicks during the night. She occasionally has crawling and aching feelings in her legs and occasionally has leg pain during the night. She occasionally awakens in the morning with jaw pain. She goes to bed at 9:00 p.m. on weekdays and at 10:00 p.m. on the weekends. It takes her 1 hour to fall asleep. She wakes up 3 times minimum throughout the night for unknown reasons. It will take her 20 minutes to fall back asleep. She wakes up at 6:00 a.m. on both weekdays and weekends. She typically gets 3-6 hours of sleep per night. She will stay in bed for 1 hour after waking up in the morning. She currently lives with her boyfriend and 7-month-old child. She denies consuming any caffeinated beverages within 2 hours of bedtime. She denies engaging in physical exercise before bedtime. She will watch television before falling asleep. She denies reading before falling asleep. She denies taking naps in the afternoon or the evening. She consumes 3 cups of caffeinated tea per day. She currently vapes. She currently uses marijuana. She denies consuming alcoholic beverages. [facility] Past Medical History Medical History ADHD Anemia Anxiety Cardiac arrhythmia possibly SVT? Dysphagia Elevated liver enzymes Encounter for removal of intrauterine contraceptive device Family history of irritable bowel syndrome GERD (gastroesophageal reflux disease) Headache Irritable bowel syndrome with constipation No acute medical problems Obesity affecting , antepartum Palpitations Surgical History Surgical History H/O laparoscopy Family History Family History Grandparent Ovarian cancer Grandparent Acute Crohn's disease Social History Social History Smoking status: Former smoker Tobacco type: e-cigarettes/vaping Second hand tobacco smoke exposure: No Alcohol intake: never Substance use: current Substance use type: marijuana Other substance usage details: Daily Do You Feel Safe in your Home?: Yes Lack of Transportation: No Lack of Food: Never True Current Housing: I Have H
[2024-01-10 16:03] VITALS: BMI 38.9
== END 2023-12-31 10:27 | disposition home or self-care (01) ==
PROVIDERS: PCP Emergency Medicine; Visit Provider Internal Medicine Cardiovascular Disease
DX: G47.10 Hypersomnia, unspecified (principal); I49.9 Cardiac arrhythmia, unspecified
CPT/HCPCS: 95800

== ENCOUNTER 2024-04-10 02:45 | Day surgery (SDC) | payer OTHER, SELFPAY ==
[2024-03-28 15:27] VITALS: BMI 39.8
[2024-04-10 11:59] VITALS: BP 134/90; PULSE 78; RESP 16; TEMP 35.9; O2SAT 100; BMI 37.5
[2024-04-10] MEDS: LACTATED RINGERS 1,000 ML 150 ML IV CONT (12:18)
--- NOTE | 2024-04-10 13:00 | P.PNAN_ITS ---
Anes - Initial Pre Proc Eval Procedure: Operation Date: 04/10/24 13:00 Proposed Procedures p Colonoscopy - Mihir Nava MD Date/Time: 04/10/24 13:00 Surgeon: Mihir Nava MD Pre Op Diagnosis: other fecal abnormalities Patient Data Age: 23 Gender: F Height: 1.6 m Weight: 96.2 kg Last Vital Signs Temp 35.9 C L 04/10/24 11:59 Pulse 78 04/10/24 11:59 Resp 16 04/10/24 11:59 BP 134/90 04/10/24 11:59 Pulse Ox 100 04/10/24 11:59 O2 Del Method Room Air 04/10/24 11:59 Allergies Allergy/AdvReac Type Severity Reaction Status Date / Time Mushroom Allergy Unknown BURNING IN Uncoded 03/28/24 15:25 THROAT Home Medications Medication Instructions Recorded Confirmed Type dextroamphetamine-amphetamine 10 20 mg PO BID 08/23/23 04/10/24 History mg tablet risperidone 1 mg tablet 1 mg PO BID 10/26/23 04/10/24 History fluoxetine 20 mg capsule 20 mg PO DAILY 11/09/23 04/10/24 History etonogestrel 0.12 mg-ethinyl 1 vag ring vaginal ONCE #3 ea 11/10/23 04/10/24 Rx estradiol 0.015 mg/24 hr vaginal ring (NuvaRing) metoprolol succinate 25 mg 12.5 mg PO DAILY #45 tabs 11/18/23 04/10/24 Rx tablet,extended release 24 hr Patient hx anesthesia problems: none Family hx anesthesia problems: none Results Review: All pre-operative results and documents have been reviewed as part of the pre- operative evaluation. [facility] Past Medical History Medical History ADHD Anemia Anxiety Bipolar disorder Cardiac arrhythmia possibly SVT? Dysphagia Elevated liver enzymes Encounter for removal of intrauterine contraceptive device Family history of irritable bowel syndrome GERD (gastroesophageal reflux disease) Headache Irritable bowel syndrome with constipation No acute medical problems Obesity affecting , antepartum Palpitations Surgical History Surgical History H/O laparoscopy Family History Family History Grandparent Ovarian cancer Grandparent Acute Crohn's disease Social History Social History Smoking status: Current every day smoker Tobacco type: e-cigarettes/vaping Second hand tobacco smoke exposure: No Alcohol intake: never Substance use: current Substance use type: marijuana Other substance usage details: daily MJ Do You Feel Safe in your Home?: Yes Lack of Transportation: No Lack of Food: Never True Current Housing: I Have Housing Concerned About Future Housing: No Difficulty Paying Gas/Electric Bills: No Difficulty Paying for Meds: No Currently Unemployed: No Education: High School Diploma/GED Difficulty w/ Childcare or Family Care: No Living arrangements: with family Occupation/Education: unemployed Gender identity (if verbalized by the patient): Female Sexual Orientation (if Verbalized by the Patient): Straight or Heterosexual Spiritual care concerns: No Anes - Eval Final PreProcedure Day of Procedure 04/10/24 13:00 Patient weight: obese Heart: regular rate and rhythm Lungs: clear to auscultation Airway: Mallampati scale class II Neurological: alert and oriented Last oral intake: >/= 8 hours ASA classification: III Emergent: no Anesthetic plan: proceed Anesthesia type and monitoring: general GIVS Results Review: All pre-operative results and documents have been reviewed as part of the pre- operative evaluation. Informed Consent: The patient's anesthetic plan and its attendant risks and benefits were discussed with the patient/family/POA. Questions were solicited and answers provided to the satisfaction of the patient/family/POA.
--- NOTE | 2024-04-10 13:12 | P.HP_ITS ---
H&P: HPI History of Present Illness Date/Time: 04/10/24 13:12 Chief Complaint: Rectal bleeding Narrative: this patient has been experiencing intermittent rectal bleeding for the past 2 weeks. She also describes difficulty Defecating after she delivered her baby. there is no unintentional weight loss, abdominal pain, or upper GI symptoms. Review of Systems 2 Review of Systems: All systems reviewed & are unremarkable except as noted in HPI and below PMFSH Past Medical History Medical History ADHD Anemia Anxiety Bipolar disorder Cardiac arrhythmia possibly SVT? Dysphagia Elevated liver enzymes Encounter for removal of intrauterine contraceptive device Family history of irritable bowel syndrome GERD (gastroesophageal reflux disease) Headache Irritable bowel syndrome with constipation No acute medical problems Obesity affecting , antepartum Palpitations Surgical History Surgical History H/O laparoscopy Family History Family History Grandparent Ovarian cancer Grandparent Acute Crohn's disease Social History Social History Smoking status: Current every day smoker Tobacco type: e-cigarettes/vaping Second hand tobacco smoke exposure: No Alcohol intake: never Substance use: current Substance use type: marijuana Other substance usage details: daily MJ Do You Feel Safe in your Home?: Yes Lack of Transportation: No Lack of Food: Never True Current Housing: I Have Housing Concerned About Future Housing: No Difficulty Paying Gas/Electric Bills: No Difficulty Paying for Meds: No Currently Unemployed: No Education: High School Diploma/GED Difficulty w/ Childcare or Family Care: No Living arrangements: with family Occupation/Education: unemployed Gender identity (if verbalized by the patient): Female Sexual Orientation (if Verbalized by the Patient): Straight or Heterosexual Spiritual care concerns: No Meds Home Medications and Allergies Home Medications Medication Instructions Recorded Confirmed Type dextroamphetamine-amphetamine 10 20 mg PO BID 08/23/23 04/10/24 History mg tablet risperidone 1 mg tablet 1 mg PO BID 10/26/23 04/10/24 History fluoxetine 20 mg capsule 20 mg PO DAILY 11/09/23 04/10/24 History etonogestrel 0.12 mg-ethinyl 1 vag ring vaginal ONCE #3 ea 11/10/23 04/10/24 Rx estradiol 0.015 mg/24 hr vaginal ring (NuvaRing) metoprolol succinate 25 mg 12.5 mg PO DAILY #45 tabs 11/18/23 04/10/24 Rx tablet,extended release 24 hr Allergies Allergy/AdvReac Type Severity Reaction Status Date / Time Mushroom Allergy Unknown BURNING IN Uncoded 03/28/24 15:25 THROAT Vital Signs Vital Signs - 24 hr 04/10/24 11:59 Temperature 96.7 F L Pulse Rate 78 Respiratory Rate 16 Blood Pressure 134/90 Pulse Oximetry 100 Oxygen Delivery Room Air Exam Const: General: cooperative and healthy appearing Resp: Effort & Inspection: normal respiratory effort and able to speak in complete sentences Auscultation: clear to auscultation bilaterally Cardio: Rate: regular rate Rhythm: regular rhythm GI: Inspection: normal to inspection GI Palp: No No hepatosplenomegaly present Auscultation: normal bowel sounds Rectal Exam: deferred Skin: General skin exam: normal color Psych: Appearance: grossly normal Mental Status: mental status grossly normal Assessment and Plan Assessment and plan (1) Rectal bleed: Code(s): K62.5 - Hemorrhage of anus and rectum Status: Acute Assessment and Plan: The patient is deemed a good candidate for the procedure. Consent signed. Will proceed.
[2024-04-10 13:31] VITALS: BP 97/52; PULSE 64; RESP 18; O2SAT 100
[2024-04-10 13:34] LABS: BEDSIDEPREGUCG Negative (Negative)
[2024-04-10 13:41] VITALS: BP 101/51; PULSE 71; RESP 22; O2SAT 97
[2024-04-10 13:51] VITALS: BP 106/60; PULSE 68; RESP 18; O2SAT 100
== END 2024-04-10 14:09 | disposition home or self-care (01) ==
PROVIDERS: PCP Emergency Medicine; Visit Provider Internal Medicine Gastroenterology
PROC: 0DJD8ZZ Inspection of Lower Intestinal Tract, Via Natural or Artificial Opening Endoscopic (ICD-10-PCS; CPT 45378; principal; 2024-04-10 13:00)
DX: K62.5 Hemorrhage of anus and rectum (principal); K64.8 Other hemorrhoids; F90.9 Attention-deficit hyperactivity disorder, unspecified type; F31.9 Bipolar disorder, unspecified; F41.9 Anxiety disorder, unspecified; F12.90 Cannabis use, unspecified, uncomplicated; E66.9 Obesity, unspecified; Z68.37 Body mass index [BMI] 37.0-37.9, adult
CPT/HCPCS: 45378; J2003; J2704; J7120

== ENCOUNTER 2024-04-14 16:01 | Outpatient (CLI) | payer OTHER, SELFPAY ==
--- NOTE | ~2024-04-14 | MR_ITS ---
EXAMINATION: MR brain/brain stem wo/w con DATE: 04/14/2024 16:57 INDICATION: Hyperprolactinemia. Headache. TECHNIQUE: Magnetic resonance imaging (MRI) of the brain and brainstem was performed without and with 20 mL MultiHance intravenous contrast. COMPARISON: Head CT 07/15/2004 FINDINGS: The pituitary is normal in size with height of 5 mm and concave superior margin. There is n o intracranial hemorrhage, acute infarction, or abnormal intracranial mass lesion. The ventricles are normal in size. There is an effusion of the right petrous apex. The orbits are normal. There is mild mucosal thickening in the paranasal sinuses. IMPRESSION: 1. Normal brain. Normal pituitary. Reviewed, dictated and finalized at location A. [facility]
== END 2024-04-14 16:02 | disposition home or self-care (01) ==
PROVIDERS: PCP Emergency Medicine; Visit Provider Emergency Medicine
DX: E22.1 Hyperprolactinemia (principal)
CPT/HCPCS: 70553; A9577

== ENCOUNTER 2024-11-01 14:31 | Outpatient (CLI) | payer OTHER, SELFPAY ==
--- NOTE | ~2024-11-01 | XR_ITS ---
EXAMINATION: XR chest 2V 11/01/2024 15:09 INDICATION: Cough PROCEDURE: 2 view chest COMPARISON: No prior studies for comparison. FINDINGS: The lungs are clear. The cardiomediastinal silhouette is within normal limits. There are no pleural effusions. There is no pneumothorax suspected. IMPRESSION: 1: NO ACUTE CARDIOPULMONARY DISEASE. Reviewed, dictated and finalized at location A.
--- OUTSIDE RECORDS SUMMARY | 2024-11-01 14:45 | XMS_ITS | Continuity of Care Document ---
Author Organization [facility] Address [address] [place] [address] [place] [address] Phone Care Team Providers Care Sheriff Detective Name Role Phone Cartre Ferrari MD Unavailable Unavailable Allergies, Adverse Reactions, Alerts Substance Reaction Status Criticality No Known Allergies Active No Inform ation Medications Medication Instructions Dosage Effective Dates (start - stop) Status Comments Risperdal 1 mg tablet take 1 tablet by oral route 2 times every day 1 MG - Active avoid driving or operate machines Adderall 20 mg tablet take 1 tablet by oral route 2 times every day before breakfast and at noon 20 MG - Active Zoloft 50 mg tablet take 1 tablet by oral route every day 50 MG - Active omeprazole 40 mg capsule,delayed release take 1 capsule by oral route every day before a meal 40 MG - Active metoprolol tartrate 25 mg tablet take 1 tablet by oral route 2 times every day 25 MG - Active Procedures Procedure Date OFFICE/OUTPATIENT VISIT, EST OFFICE/OUTPATIENT VISIT, EST OFFICE/OUTPATIENT VISIT, EST OFFICE/OUTPATIENT VISIT, EST PREV VISIT, EST, AGE 18-39 OFFICE/OUTPATIENT VISIT, EST OFFICE/OUTPATIENT VISIT, EST OFFICE/OUTPATIENT VISIT, EST OFFICE/OUTPATIENT VISIT, EST OFFICE/OUTPATIENT VISIT, EST OFFICE/OUTPATIENT VISIT, EST OFFICE/OUTPATIENT VISIT, EST OFFICE/OUTPATIENT VISIT, EST OFFICE/OUTPATIENT VISIT, EST OFFICE/OUTPATIENT VISIT, EST OFFICE/OUTPATIENT VISIT, EST OFFICE/OUTPATIENT VISIT, EST OFFICE/OUTPATIENT VISIT, EST PREV VISIT, NEW, AGE 18-39 Advance Directives Directive Yes / No Effective Date File Name No Information Encounters Encounter Description Practice Location Reason(s) For Visit Diagnoses Date Provider Providers Copied on Encounter OFFICE/OUTPA TIENT VISIT, [facility], [address], [place], [place], [address], [place] tel:[phone] [facility] cough1 (chief complaint) ADD (chief complaint) anxiety1 (chief complaint) weight gain1 (chief complaint) Attention deficitGeneralized Anxiety DisorderAbnormal weight gainChronic cough 5 [address], [place], [place], [address] , [place]. tel:[phone] OFFICE/OUTPA TIENT VISIT, [facility], [address], [place], [place], [address], [place] tel:[phone] [facility] ADD (chief complaint) palpitatio n1 (chief complaint) prolactin1 (chief complaint) anxiety1 (chief complaint) Attention deficitPalpitations HyperprolactinemiaG eneralized Anxiety Disorder 5 [address], [place], [place], [address] , [place]. tel:[phone] OFFICE/OUTPA TIENT VISIT, [facility], [address], [place], [place], [address], [place] tel:[phone] [facility] ADD (chief complaint) Attention deficit 5 [address], [place], [place], [address] , [place]. tel:[phone] OFFICE/OUTPA TIENT VISIT, [facility], [address], [place], [place], [address], [place] tel:[phone] [facility] ADD (chief complaint) tachycardi a1 (chief complaint) TachycardiaAttentio n deficit 5 [address]. [address], [place], [place], [address] , [place]. tel:[phone] PREV VISIT, EST, AGE 18-39 [facility], [address], [place], [place], [address], [place] tel:[phone] [facility] physical (chief complaint) Encounter for general adult medical examination without abnormal findings 5 Vega Machado. [address], [place], [place], [address] , [place]. tel:[phone] OFFICE/OUTPA TIENT VISIT, [facility], [address], [place], [place], [address], [place] tel:[phone] [facility] ADD (chief complaint) GERD1 (chief complaint) tachycardi a1 (chief complaint) Attention deficitHyperprolact inemiaTachycardiaGE RD w/o esophagitis 5 Vega [address]. [address], [place], [place], [address] , [place]. tel:[phone] OFFICE/OUTPA TIENT VISIT, EST [facility], [address], [place], [place], [address], [place] tel:[phone] [facility] ADD (chief complaint) prolactin1 (chief complaint) Attention deficitHyperprolact inemia 4 [address]. [address], [place], [place], [address] , [place]. tel:[phone] OFFICE/OUTPA TIENT VISIT, EST [facility], [address], [place], [place], [address], [place] tel:[phone] [facility] anxiety1 (chief complaint) ADD (chief complaint) rectal (chief complaint) prolactin1 (chief complaint) Generalized Anxiety DisorderAttention deficitOccult blood in stoolHyperprolactin emia 4 [address]. [address], [place], [place], [address] , [place]. tel:[phone] OFFICE/OUTPA TIENT VISIT, [facility], [address], [place], [place], [address], [place] tel:[phone] [facility] anxiety1 (chief complaint) Prolactin1 (chief complaint) GERD1 (chief complaint) ADD (chief complaint) GERD w/o esophagitisHyperpro lactinemiaAttention deficitGeneralized Anxiety Disorder 4 [address], [place], [place], [address] , [place]. tel:[phone] OFFICE/OUTPA TIENT VISIT, [facility], [address], [place], [place], [address], [place] tel:[phone] [facility] GI (chief complaint) LFT (chief complaint) prolactin1 (chief complaint) HyperprolactinemiaL iver diseaseOccult blood in stoolGERD w/o esophagitis 4 [address]. [address], [place], [place], [address] , [place]. tel:[phone] OFFICE/OUTPA TIENT VISIT, [facility], [address], [place], [place], [address], [place] tel:[phone] [facility] ADD (chief complaint) pregnancy1 (chief complaint) AmenorrheaAttention deficit 4 [address]. [address], [place], [place], [address] , [place]. tel:[phone] OFFICE/OUTPA TIENT VISIT, [facility], [address] [address], [place] tel:[phone] [facility] weight gain1 (chief complaint) anxiety1 (chief complaint) prolactin1 (chief complaint) ADD (chief complaint) AmenorrheaGeneraliz ed Anxiety DisorderAttention deficitHyperprolact inemia Jan- 4 [address]. [address], [place], [place], [address] , [place]. tel:[phone] OFFICE/OUTPA TIENT VISIT, [facility], [address], [place], [place], [address], [place] tel:[phone] [facility] HLP (chief complaint) LFT (chief complaint) prolactin1 (chief complaint) anxiety1 (chief complaint) aDD (chief complaint) Mixed hyperlipidemiaLiver diseaseGeneralized Anxiety DisorderHyperprolac tinemiaProteinuriaA ttention deficit 4 Ferrari Carter. [address], [place], [place], [address] , [place]. tel:[phone] OFFICE/OUTPA TIENT VISIT, [facility], [address], [place], [place], [address], [place] tel:[phone] [facility] anxiety1 (chief complaint) tachycardi a1 (chief complaint) ADD (chief complaint) prolactin1 (chief complaint) Liver diseaseAttention deficitHyperprolact inemiaTachycardiaGe neralized Anxiety DisorderGERD w/o esophagitis 4 Ferrari Carter. [address], [place], [place], [address] , [place]. tel:[phone] OFFICE/OUTPA TIENT VISIT, [facility], [address], [place], [place], [address], [place] tel:[phone] [facility] GERD1 (chief complaint) tachycardi a1 (chief complaint) anxiety1 (chief complaint) TachycardiaLiver diseaseGeneralized Anxiety DisorderDysphagia 4 Ferrari Carter. [address], [place], [place], [address] , [place]. tel:[phone] OFFICE/OUTPA TIENT VISIT, [facility], [address], [place], [place], [address], [place] tel:[phone] [facility] anxiety1 (chief complaint) tachycardi a1 (chief complaint) ADD (chief complaint) dysphagia1 (chief complaint) Generalized Anxiety DisorderAttention deficitTachycardiaD ysphagia 4 Vega Carter. [address], [place], [place], [address] , [place]. tel:[phone] OFFICE/OUTPA TIENT VISIT, [facility], [address], [place], [place], [address], [place] tel:[phone] [facility] anxiety1 (chief complaint) ADD (chief complaint) tachycardi a1 (chief complaint) LFT (chief complaint) Liver diseaseGeneralized Anxiety DisorderAttention deficitTachycardia Aug- 4 Ferrari Carter. [address], [place], [place], [address] , [place]. [phone] OFFICE/OUTPA TIENT VISIT, [facility], [address], [place], [place], [address], [place] tel:[phone] [facility] LFT (chief complaint) anxiet1 (chief complaint) tachycardi a1 (chief complaint) iron (chief complaint) TachycardiaLiver diseaseGeneralized Anxiety DisorderAttention deficitIron deficiency anemia 4 Ferrari Carter. [address], [place], [place], [address] , [place]. tel:[phone] PREV VISIT, NEW, AGE 18-39 [facility], [address], [place], [place], [address], [place] tel:[phone] [facility] physical (chief complaint) Encounter for general adult medical examination without abnormal findings 4 Vega Carter. [address], [place], [place], [address] , [place]. tel:[phone] Family History Family Member Type Diagnosis Age At Onset Mother Problem IBS Mother Problem GERD Brother Problem autism Mother Problem gallstone Father Problem Alive and well Brother Problem ADD/ADHD Mother Problem bipolar Brother Problem Alive and well Mother Problem celiac disease Payers Payer name Insurance type Covered republican ID Ira chaparro(s) [facility] CI [id number] Social History Type Description Quantity Date Captured Comments Alcohol Use Details No Caffeine Use Details Unknown Tobacco Use Status Current non-smoker Smoking Status Never smoker Sex Female Vital Signs Date / Time: Height Weight BMI Pulse Rate Blood Pressure Temperature Respiratory Rate Body Surface Area Head Circumference BMI percentile Pulse Ox Inhaled Ox 5:58 PM 63.00 in 225.60 lbs 39.9 6 kg/m eter (2) 90 /min 110/60 mm[Hg] 98.0 F 16 /min Chief Complaint And Reason For Visit From encounter dated '10/19/2024 17:53'. cough1 (chief complaint). Description: Pt has chronic cough with occasional brownish and dark colorphlegm. Pt started to smoke recently Pt denies any hemoptysis, sob ADD (chief complaint). Description: Patient has ADD. Patient has inattentive type. Patient feels scatterbrained. Patient feel poor focus and difficulty completing tasks. Patient states that Adderall is helping with symptoms. Patient feels more focused. Pt feels more energy. Patient denies any headache, dry mouth, headache, chest pain. Patient denies any appetite loss. anxiety1 (chief complaint). Description: Pt has chronic anxiety and depression and she feels very irritable. Pt denies any suicidal or homicidal thought. Pt takes zoloft and she only has been taking risperdal once per day. weight gain1 (chief complaint). Description: Pt has been gaining weight. Pt is sedentary Plan Of Treatment Date Type Action Status Referral Ordered: CHEST X-RAY PA/LAT TWO-VIEWS ordered Referral Ordered: COLONOSCOPY AND BIOPSY ordered Referral Ordered: MRI BRAIN W/O & W/DYE ordered Referral Ordered: EKG for initial prevent exam ordered Referral Ordered: Brad Barron [facility] : Internal Medicine : Gastroenterology (related to Dysphagia) ordered Referral Referred To: Brad Barron [address], [place], [phone] Ordered: Referrals: [facility] : Internal Medicine : Gastroenterology. Brad Barron. Evaluate and treat ordered Referral Ordered: US EXAM, ABDOM, COMPLETE ordered Referral Referred To: Ethan Rodrigez [address] [place] [address], [phone] Ordered: Referrals: Ethan Rodrigez. Evaluate and treat ordered Appointment Varsha Keller BOOKED History Of Present Illness Encounter Date Complaint History Of Prese nt Illness weight gain1 Pt has been gain ing weight. Pt is sedentary cough1 Pt has chronic c ough with occasional brownish and dark color phlegm. Pt started to smoke recently Pt denies any hemoptysis, sob ADD Patient has ADD. Patient has inattentive type. Patient feels scatterbrained. Patient feel poor focus and difficulty completing tasks. Patient states that Adderall is helping with symptoms. Patient feels more focused. Pt feels more energy. Patient denies any headache, dry mouth, headache, chest pain. Patient denies any appetite loss. anxiety1 Pt has chronic a nxiety and depression and she feels very irritable. Pt denies any suicidal or homicidal thought. Pt takes zoloft and she only has been taking risperdal once per day. ADD Patient has ADD. Patient has inattentive type. Patient feels scatterbrained. Patient feel poor focus and difficulty completing tasks. Patient states that Adderall is helping with symptoms. Patient feels more focused. Pt feels more energy. Patient denies any headache, dry mouth, headache, chest pain. Patient denies any appetite loss. palpitation1 Pt has intermitt ent palpitation Pt is on metoprolol PRN Pt followed up with cardiology and she is wearing event monitor now. Pt denies any chest pain or sob prolactin1 Pt has high prol actin Pt denies any nipple discharge Pt had normal MRI of brain Pt never followed up with endo anxiety1 Pt has chronic a nxiety and depression Pt takes zoloft and risperdal and doing ok. Pt denies any suicidal or homicidal thought .Pt denies any crying spells ADD Patient has ADD. Patient has inattentive type. Patient feels scatterbrained. Patient feel poor focus and difficulty completing tasks. Patient states that Adderall is helping with symptoms. Patient feels more focused. Pt feels more energy. Patient denies any headache, dry mouth, headache, chest pain. Patient denies any appetite loss. ADD Patient has ADD. Patient has inattentive type. Patient feels scatterbrained. Patient feel poor focus and difficulty completing tasks. Patient states that Adderall is helping with symptoms. Patient feels more focused. Pt feels more energy. Patient denies any headache, dry mouth, headache, chest pain. Patient denies any appetite loss. tachycardia1 pt has tachycard ia with palpitation Pt takes metoprolol PRN only Pt made manuel with cardiology at [facility] for next week physical Pt needs annual physical Pt has chronic anxiety and depression. Pt doing well with zoloft and risperdal and doing well Pt denies any suicidal or homicidal thought .Pt denies any crying spells Pt has ADD Pt doing ok with adderall. pt has chronic intermittent GERD .pt doing ok with omeprazole PRN. Pt also has intermittent tachycardia Pt takes metoprolol PRN only Pt has not followed up with cardiology yet. Pt denies any new complaints . GERD1 Pt has chronic G ERD pt had negative EGD Pt only take omeprazole PRn and doing ok Pt has not had much GERD ADD Patient has ADD. Patient has inattentive type. Patient feels scatterbrained. Patient feel poor focus and difficulty completing tasks. Patient states that Adderall is helping with symptoms. Patient feels more focused. Pt feels more energy. Patient denies any headache, dry mouth, headache, chest pain. Patient denies any appetite loss. tachycardia1 Pt has intermitt ent tachycardia. Pt had negative cardiac echo Pt only take metoprolol PRn Pt is seeing cardiology and she supposes to take metoprolol daily which makes her too tired Pt just had another episode last week when her HR went up to 200 per patient Pt denies any chest pain Pt no longer has tachycardia now prolactin1 Pt has high prol actin Pt had normal MRI of brain Pt denies any nipple discharge .Pt missed her manuel with endo ADD Patient has ADD. Patient has inattentive type. Patient feels scatterbrained. Patient feel poor focus and difficulty completing tasks. Patient states that Adderall is helping with symptoms. Patient feels more focused. Pt feels more energy. Patient denies any headache, dry mouth, headache, chest pain. Patient denies any appetite loss. anxiety1 Pt has chronic a nxiety and depression Pt takes zoloft and risperdal and doing ok Pt denies any suicidal or homicidal thought Pt denies any crying spells . ADD Patient has ADD. Patient has inattentive type. Patient feels scatterbrained. Patient feel poor focus and difficulty completing tasks. Patient states that Adderall is helping with symptoms. Patient feels more focused. Pt feels more energy. Patient denies any headache, dry mouth, headache, chest pain. Patient denies any appetite loss. rectal Pt has some rect al bleeding with red blood. Pt had colonoscopy done which showed internal hemorrhoid only. Pt denies any recurrent bleeding prolactin Pt has high prol actin. Pt notices some milky nipple discharge. Pt is seeing [facility] and she is seeing endo as well. MRI of brain was normal anxiety pt has chronic a nxiety and depression. pt feels very irritable. Pt states that she feels angry all the time. Pt denies any suicidal or homicidal thought Pt denies any crying spells . Prolactin1 Pt has elevated prolactin Pt saw endo yesterday and she will do MRI of brain and she had her prolactin level and HCG done while at endo office. She has not heard the result yet . GERD1 Pt has chronic G ERD Pt is on omeprazole PRN and doing ok ADD Patient has ADD. Patient has inattentive type. Patient feels scatterbrained. Patient feel poor focus and difficulty completing tasks. Patient states that Adderall is helping with symptoms. Patient feels more focused. Pt feels more energy. Patient denies any headache, dry mouth, headache, chest pain. Patient denies any appetite loss. GI Pt c/o bright re d blood in stool x 3 days. Pt c/o nausea, vomiting as well. Pt also notices some dark stool as well Pt denies any constipation. Pt wants colonoscopy Pt has chronic GERD as well and she takes omeprazole daily. pt had EGD done two months ago which was normal. Pt had negative colonoscopy done two years ago which was normal. Pt states that she feels incomplete emptying sometimes. Pt c/o occasional right upper quadrant abd pain post food. LFT Pt went to [facility] and had lab done which showed normal LFT. prolactin1 Pt has high prol actin Pt is waiting for approval for MRI of the brain ADD Patient has ADD. Patient has inattentive type. Patient feels scatterbrained. Patient feel poor focus and difficulty completing tasks. Patient states that Adderall is helping with symptoms. Patient feels more focused. Pt feels more energy. Patient denies any headache, dry mouth, headache, chest pain. Patient denies any appetite loss. pregnancy1 Pt had false pos itive urine HCG testing Pt is on nuvaring LMP 3 weeks ago. Serum HCG was negative for at [facility] office on 02/22/24 prolactin1 Pt has high prol actin Pt denies any nipple discharge Pt has MRI of brain and endo scheduled in 4 weeks. ADD Pt doing ok with adderall weight gain1 Pt has been gain ing weight Pt did urine HCG this morning which was positive her LMP 3 weeks ago. Pt has symptoms suggestive of anxiety1 Pt has anxiety a nd depression Pt doing ok with zoloft and risperdal Pt denies any suicidal or homicidal thought .Pt denies any crying spells HLP Pt has HLP, Pt i s working on diet LFT Pt has mildly hi gh LFT Pt denies any abd pain or jaundice. lab missed hepatitis. Pt rarely drinks alcohol prolactin1 Pt has high prol actin Pt notices some tunnel vision and some headache as well. . Pt was referred to endocrinology by her [facility] anxiety1 Pt has chronic a nxiety and depression with mood swings Pt doing ok with zoloft and risperdal Pt denies any suicidal or homicidal thought pt denies any crying spells. aDD Pt has ADD Pt do ing ok with adderall. anxiety1 Pt has chronic a nxiety and depression with mood swings and anger issue Pt has difficulty coping with stress . Pt states that risperdal does seem to her anger issue and mood swings but prozac did not help Pt denies any suicidal or homicidal thought Pt denies any crying spells tachycardia1 Pt has history o f tachycardia with palpitation Pt had normal EKG Pt was seen by cardiology recently and she was told to continue metoprolol. ADD Patient has ADD. Patient has inattentive type. Patient feels scatterbrained. Patient feel poor focus and difficulty completing tasks. Patient states that Adderall is helping with symptoms. Patient feels more focused. Pt feels more energy. Patient denies any headache, dry mouth, headache, chest pain. Patient denies any appetite loss. prolactin1 Pt had lab done by [facility] and her prolactin level is elevated Pt denies any headache Pt wants to find out why her prolactin is high Pt denies any nipple discharge. GERD1 Pt has chronic G ERD .Pt is on omeprazole. Pt feels mild dysphagia. pt has manuel for EGD soon. tachycardia1 pt has history o f tachycardia .Pt denies any chest pain or palpitation Pt has not returned cardiology call to make manuel yet. Pt takes metoprolol PRN. anxiety1 Pt has history o f severe anxiety and depression Pt denies any suicidal or homicidal thought. pt has very poor coping skills for stress. Pt is and she feels overwhelmed with her and she does have her mom to help her taking care of the frequently. Her partner is not very helpful helping her with the baby Pt states that she is very sensitive to outside stimuli including touch, noise, etc and she becomes very irritable and sometimes out of control and she started to yell and scream and she starts to hit herself sometimes to relieve the stress. Pt states that wellbutrin is not helping. Pt also has not made manuel with chestnut yet. anxiety1 Pt has chronic a nxiety and depression Pt states that she stopped lexapro and buspar on her own recently since none helped Pt still has anxiety and depression, especially her anxiety is poorly controlled .Pt states that she does not handle stress well. Pt denies any suicidal or homicidal thought dysphagia1 Pt has been havi ng dysphagia lately Pt has history of gastric erosion Pt states that both food and liquid get stuck around throat and midchest area. Pt denies any abd pain with food but she feels nauseated post food. Pt is on omeprazole. Pt denies any drooling tachycardia1 Pt has tachycard ia intermittently and palpitation Pt takes metoprolol PRN. Pt denies any chest pain Pt missed her manuel with cardiology. ADD Pt has ADD, with poor focus Pt feels very overwhelmed. Pt states that everything stress her out. ADD Pt has ADD pt st ates that she has been taking adderall for a while and she does not feel the dose is working anymore Pt still feels inability to concentrate. anxiety1 Pt has chronic a nxiety and depression Pt states that she is on 20 mg lexapro, not 10 mg. pt also takes buspar as well. Pt states that sometimes when she gets overstimulated with excessive noise, stress and she becomes very irritable and frustrated and she has the urge to shake her hand, pull her hair, hit her head to relieve the inside stress which builds up after being overstimulated Pt denies any intentional self injury or self harming behavior. Pt states that smoking marijuana helps her relieve her stress. tachycardia1 Pt has history o f paroxymal tachycardia Pt was evaluated by cardiology at [facility] last year with holter monitor, cardiac echo, etc and she was cleared by cardiology. pt was given metoprolol to take PRN if she feels that her heart rate is up. Pt states that she frequently feels that her HR goes up to over 100 and she has been taking metoprolol PRn for above. Pt states that if she takes metoprolol BID, her HR goes too low. Pt denies any chest pain. Pt denies any syncope ,dizziness, chest pain or palpitation. Pt had to reschedule her manuel with Dr. rodrigez . LFT Pt has mildly hi gh LFT Pt denies any abd pain or jaundice Pt has not done lab yet tachycardia1 Pt has history o f paroxymal tachycardia Pt was evaluated by cardiology at [facility] last year with holter monitor, cardiac echo, etc and she was cleared by cardiology. pt was given metoprolol to take PRN if she feels that her heart rate is up. Pt states that she frequently feels that her HR goes up to over 100 and she has been taking metoprolol PRn for above. Pt states that if she takes metoprolol BID, her HR goes too low. Pt denies any chest pain. Pt denies any syncope ,dizziness, chest pain or palpitation. LFT Pt has mild high LFT on recent lab from [employer] [employer]. Pt denies any abd pain or jaundice. Pt rarely drinks alcohol anxiet1 Pt has chronic a nxiety and depression and ADD >pt takes lexapro, buspar and adderall and doing ok Pt denies any suicidal or homicidal thought Pt denies any crying spells iron Pt has history o f iron deficiency anemia. pt denies any bleeding pt had lab done by staffing rn which showed normal CBC She did not get iron done physical Pt needs annual physical Pt has history of iron deficiency anemia due to and she had to get iron transfusion and blood transfusion during Pt is 4 weeks and she is not breast feeding. Pt has anxiety and depression Pt takes lexapro and doing ok pt has ADD Pt takes adderall Pt has history of gastric ulcer She had EGD and colonoscopy two years ago and she was told that she has IBS-c. Pt takes omeprazole daily Pt states that she has frequent GERD without omeprazole. Instructions Date Instruction Additional Infor mation No Information Assessments Type Assessment Date assessment Attention deficit assessment Generalized Anxiety Disorder September assessment Abnormal weight gain assessment Chronic cough Mental Status Date Cognitive Assessment Orientation - [place] ed to time, place, person, situation.
--- OUTSIDE RECORDS SUMMARY | 2024-11-01 14:45 | XMS_ITS | Clinical Summary ---
Author Organization [facility] Address [address] [place] [address] Care Team Providers Care Data Engineer Name Role Phone Carter Ferrari MD Primary Care Provider Source Comments [facility],non-owned Affiliates and Associated Physician Practices is amultiple site organization consisting of ambulatory clinics and hospital sitesin [place], [place], [place] and [place]. This disclosure is being madepursuant to the Care Everywhere program and may not contain all information available regarding this patient. Last updated 18.[facility] Allergies No known active allergies Medications * Be aware that medications may not be up to date on this document. Alwaysverify current medications with the patient. sertraline (ZOLOFT) 50 MG tablet 100 mg at bedtime Active albuterol HFA (ProAir HFA) 108 (90 Base) MCG/ACT inhaler Inhale 2 (two) puffs by mouth every 4 hours as needed 8.5 g 3 Active Additional Information Patient not taking.Reported on 08/18/2022 benzonatate (Tessalon) 200 MG capsule Take 1 (one) capsule by mouth 3 times daily as needed for Cough 30 capsule 3 Active Additional Information Patient not taking.Reported on 08/18/2022 escitalopram (Lexapro) 20 MG tablet Take 1 (one) tablet by mouth once daily Active omeprazole (PriLOSEC) 40 MG capsule Take 1 (one) capsule by mouth once daily 3 Active metoprolol tartrate IR (Lopressor) 25 MG tablet TAKE 1 TABLET BY MOUTH TWICE DAILY 60 tablet 3 Active Active Problems Problem Noted Date Diagnosed Date Palpitations 07/30/2021 Assessment & Plan (08/18/2022 9:56 PM CDT): Symptoms consistent with panic attacks, recommended further evaluation Sinus tachycardia on event monitor Will try metoprolol tartrate 25mg for symptom control Will follow up in 3 months to access further symptoms Assessment & Plan (09/17/2021 5:10 PM CDT): Continues to have symptoms, possibly triggered by stress Pt wishes to defer 30 day event onitor given skin reaction Will follow up in 3 months on symptoms Discussed vagal maneuvers Assessment & Plan (09/04/2021 2:24 PM CDT): 30 day event monitor with episodes of sinus tachycardia, no other arrhythmias As symptoms have gotten better after starting sertraline, will continue to monitor If episodes recur, can consider EP evaluation for SVT Assessment & Plan (07/30/2021 10:34 PM PV DESIGN ENGINEER): Will obtain 30 day event monitor Family History Medical History Relation Name Comments Autism Spectrum Disorder Brother 2 Hypertension Father Crohn's Disease Maternal Grandfather Hypertension Maternal Grandfather Cancer - Other Maternal Grandmother Renal Disease Maternal Grandmother Hypertension Mother Seizures Mother ADD/ADHD Sister 1 ADD/ADHD Sister 2 Relation Name Status Comments Brother 1 Alive Brother 2 Alive Father Alive Maternal Grandfather Maternal Grandmother Mother Alive Paternal Grandfather Paternal Grandmother Alive Sister 1 Alive Sister 2 Alive Social History Tobacco Use Types Packs/Day Years Used Date Smoking Tobacco: Never Smokeless Tobacco: Never Alcohol Use Standard Drinks/Week Comments Not Currently 0 (1 standard drink = 0.6 oz pur e alcohol) AUDIT-C Answer Date Recorded Frequency of Alcohol Consumption Not on file 06/11/2022 Q2: How many drinks containi ng alcohol do you have on a typical day when you are drinking? Patient does not drink Frequency of Binge Drinking Not on file 05/31 Comments No Sex and Gender Information Value Date Recorded Sex Assigned at Not on file Legal Sex Female 5:41 AM PV DESIGN ENGINEER Gender Identity Not on file Sexual Orientation Not on file Last Filed Vital Signs Vital Sign Reading Time Taken Comments Blood Pressure 125/82 03/13/2024 9:18 PM CDT Pulse 88 03/13/2024 9:18 PM CDT Temperature 36.6 C (97.8 F) 03/13/2024 6:17 PM CDT Respiratory Rate 16 03/13/2024 9:18 PM CDT Oxygen Saturation 99% 03/13/2024 9:18 PM CDT Inhaled Oxygen Concentration - - Weight 99.8 kg (220 lb) 03/13/2024 6:17 PM CDT Height 160 cm (5' 3) 03/13/2024 6:17 PM CDT Body Mass Index 38.97 03/13/2024 6:17 PM CDT Plan of Treatment Health Maintenance Due Date Last Done Comments PAP SMEAR 2002 HPV VACCINE (1 - 3-dose series) 2017 MENINGOCOCCAL (Group B) VACCINE SHARED DECISION-MAKING (1 of 2 - Standard) 2018 HEPATITIS C SCREENING 07/30/2020 DTAP/TDAP/TD VACCINES (1 - Tdap) 2021 HEPATITIS B VACCINE (1 of 3 - 19+ 3-dose series) 2021 CHLAMYDIA/GONORRHEA SCREENING 10/08/2023 10/07/2022, 08/19/2022, 07/01/2022, Additional history exists COVID-19 VACCINE ( - season) 2024 DEPRESSION SCREENING 05/31/2024 INFLUENZA VACCINE (Season Ended) 2025 04/28/2018, 03/13/2017, 04/06/2015, Additional history exists ZOSTER VACCINE (1 of 2) 2052 HIV SCREENING Completed 03/12/2023, 01/30, 07/18/2021 HIB VACCINE Aged Out No longer eligi ble based on patient's age to complete this topic MENINGOCOCCAL GROUPS A/C/Y/W VACCINE Aged Out No longer eligible based on patient's age to complete this topic PNEUMOCOCCAL VACCINE Aged Out No long er eligible based on patient's age to complete this topic Goals Goal Patient Goal Type Associated Problems Recent Progress Patient-Stated? Author Mobility General No change( 022 11:31 AM PV DESIGN ENGINEER) No Bonnie Arcos RN Note: Expected end date: 08/28/2021 The goal is to maintain or improve your mobility at the optimum level for you. Interventions: Insurance [facility] * Guarantor: VARSHA SOSA Account Type Relation to Patient Date of Phone Billing Address Personal/Family [id number] [address] [facility] * Guarantor: VARSHA SOSA Account Type Relation to Patient Date of Phone Billing Address Personal/Family [id number] [place] [address] * Guarantor: VARSHA SOSA Account Type Relation to Patient Date of Phone Billing Address Personal/Family [id number] [place] [address] Care Teams Data Engineer Relationship Specialty Start Date End Date Carter Ferrari MD [facility] [place] [address] PCP - General Family Medicine 03/13/24
--- OUTSIDE RECORDS SUMMARY | 2024-11-01 14:46 | XMS_ITS | Clinical Summary ---
Author Organization [facility] Address [facility] [place] [address] Care Team Providers Care Circle Saw Operator Name Role Phone Erika Delgado MD Primary Care Provider [phone]- [phone] Allergies No known active allergies Medications ondansetron ODT (ZOFRAN-ODT) 4 mg disintegrating tablet Take 1 tablet (4 mg total) by mouth every 8 (eight) hours as needed for nausea or vomiting 20 tablet 4 Active HYDROcodone-acetami nophen (NORCO) 5-325 mg per tabletIndications:P ain Take 1 tablet by mouth every 6 (six) hours as needed for pain 10 tablet 4 Active ketorolac (TORADOL) 10 mg tablet Take 1 tablet (10 mg total) by mouth every 6 (six) hours as needed for pain 20 tablet 4 Active Social History Tobacco Use Types Packs/Day Years Used Date Smoking Tobacco: Never Assessed Personal Safety Answer Date Recorded Have you ever been in or are you currently in a harmful physical or emotional relationship or is someone making you feel afraid or unsafe? 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 Gender Identity Not on file Sexual Orientation Not on file Last Filed Vital Signs Vital Sign Reading Time Taken Comments Blood Pressure 118/84 09/09/2023 4:21 AM CDT Pulse 80 09/09/2023 4:21 AM CDT Temperature 36.6 C (97.9 F) 09/09/2023 1:31 AM CDT Respiratory Rate 20 09/09/2023 4:21 AM CDT Oxygen Saturation 99% 09/09/2023 4:21 AM CDT Inhaled Oxygen Concentration - - Weight 95 kg (209 lb 7 oz) 09/09/2023 1:31 AM CD T Height 172.7 cm (5' 8) 09/09/2023 1:31 AM CDT Body Mass Index 31.84 09/09/2023 1:31 AM CDT Plan of Treatment Health Maintenance Due Date Last Done Comments Cervical Cancer Screening 2002 Depression Screening 2002 Hepatitis C Screening 2002 Meningococcal B Vaccine (2 o f 2 - Bexsero SCDM 2-dose series) 07/31/2020 02/01/2020 Regular Well Visit/Exam 18-64 2020 DTaP/Tdap/Td Vaccine (7 - Td or Tdap) 12/24/2023 12/23/2013, 08/10/2007, 08/20/2005, Additional history exists Influenza Vaccine (Season Ended) 2025 04/28/2018, 03/13/2017, 04/06/2015, Additional history exists Hepatitis B Screening Completed 06/14/2003 , 02/27/2003, 2002 Pneumococcal vaccine <65 Completed 004, 02/27/2003, 2002, Additional history exists Varicella Vaccines Completed 05/25/2013, 05/05/2004 HPV Vaccines Completed 03/15/2021, 01/30/2017 Insurance [facility] Care Teams Circle Saw Operator Relationship Specialty Start Date End Date Erika Delgado MD [facility] [place] [address] PCP - General Family Medicine 07/23/22
--- OUTSIDE RECORDS SUMMARY | 2024-11-01 14:46 | XMS_ITS | Referral Summary ---
Author Organization [facility] Address 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
--- OUTSIDE RECORDS SUMMARY | 2024-11-01 14:46 | XMS_ITS | Data Portability ---
Author Organization [facility], Main Office Address [address] [place] [address] Care Team Providers Care Cosmetic Sales Consultant Name Role Phone ERIKA BAINS Primary Care Provider Assessment No assessment recorded. Plan of Treatment Reminders Order Date Submit Date Provider Last Modified By Organization Details Last Modified Time Details Appointments None recorded. Lab CMP, serum or plasma 2022 023 BREEZY Not available 3 18:43:07 CBC w/ auto diff 2022 023 BREEZY Not available 3 18:54:26 TSH, serum or plasma 2022 023 BREEZY Not available 3 19:44:53 HbA1c (hemoglobin A1c), blood 2022 023 [email or web address] Not available 3 08:08:51 Referral None recorded. Procedures None recorded. Surgeries None recorded. Imaging None recorded. Medication Orders omeprazole 40 mg capsule,del ayed release 2022 023 [email or web address] 3 [id number], [address], [place], [id number], 3 16:42:39 dextroamphe tamine-amph etamine 10 mg tablet 2022 023 [email or web address] [facility]57335, [address], [place], [phone], 3 14:08:02 Patient TargetsNo targets recorded. Patient InstructionsNo instructions recorded. Reason for Referral None Reported. Results Created Date Observation Date Name Description Value Unit Range Abnormal Flag Note LastModifiedBy Organization Detail LastModifiedTime 08/14/1908/13/2022 COMPR EHENS ALBERTO METAB OLIC PANEL sodium 140 mmol/ L 137-14 5 Not Available [facility] (Lab) [address] [place], [address], 08/13/2022 18:43:07 08/14/19 23 08/13/2022 COMPR EHENS ALBERTO METAB OLIC PANEL potassium 4.1 mmol/ L 3.5-5. 1 Not Available [facility] (Lab) [address] [place], [address], 08/13/2022 18:43:07 08/14/19 23 08/13/2022 COMPR EHENS ALBERTO METAB OLIC PANEL chloride 107 mmol/ L 98-107 Not Available [facility] (Lab) [address] [place], [address], 08/13/2022 18:43:07 08/14/19 23 08/13/2022 COMPR EHENS ALBERTO METAB OLIC PANEL carbon dioxide 25 mmol/ L 22-30 Not Available [facility] (Lab) [address] [place], [address], 08/13/2022 18:43:07 08/14/19 23 08/13/2022 COMPR EHENS ALBERTO METAB OLIC PANEL anion gap 12.1 mmol/ L 14-22 low Not Available [facility] (Lab) [address] [place], [address], 08/13/2022 18:43:07 08/14/19 23 08/13/2022 COMPR EHENS ALBERTO METAB OLIC PANEL glucose 85 mg/dL 70-99 Not Available [facility] (Lab) [address] [place], [address], 08/13/2022 18:43:07 08/14/19 23 08/13/2022 COMPR EHENS ALBERTO METAB OLIC PANEL BUN 11 mg/dL 8-19 Not Available [facility] (Lab) [address] [place], [address], 08/13/2022 18:43:07 08/14/1908/13/2022 COMPR EHENS ALBERTO METAB OLIC PANEL creatinine 0.63 mg/dL 0.66-1 .25 low Not Available [facility] (Lab) [address] [place], [address], 08/13/2022 18:43:07 08/14/19 23 08/13/2022 COMPR EHENS ALBERTO METAB OLIC PANEL GFR >60 Refer ence Range : [place] ge GFR Healt hy Adult : >60 mL/mi n/1.7 3 m2 Chron ic Kidne y Disea se: 15-60 mL/mi n/1.7 3 m2 Kidne y Failu re: <15/m L/min /1.73 m2 www.n iddk. nih.g ov The MDRD study equat ion has not been valid ated in child mirta <18 years of age; pregn ant women ; the elder ly >85 years of age; or in some racia l or ethni c subgr oups, such as Histn nics. Outsi de the valid ated antonio eters , estim ated GFR is less accur ate, requi ring clini natalya judgm ent on a case- by-ca se basis . Clini natalya inter preta tion for other races and ages must be made by the clini cb. The MDRD study equat ion has not been valid ated for the evalu ation of serum creat inine relat ed to nutri raul l statu s or medic ation usage . For perso ns <18 years of age, a pedia tric GFR calcu lator is avail able on the NK[facility] websi te: https ://samaria escalante.dileep angel/pr ofess ional s/kdo qi/gf r_cal culat or Not Available [facility] (Lab) [address] [place], [address], 08/13/2022 18:43:07 08/14/19 23 08/13/2022 COMPR EHENS ALBERTO METAB OLIC PANEL alkaline phosphatase 36 U/L 38-126 low Not Available [facility] (Lab) [address] [place], [address], 08/13/2022 18:43:07 08/14/19 23 08/13/2022 COMPR EHENS ALBERTO METAB OLIC PANEL alanine aminotransfe rase 29 U/L 0-35 Not Available [facility] (Lab) [address] [place], [address], 08/13/2022 18:43:07 08/14/19 23 08/13/2022 COMPR EHENS ALBERTO METAB OLIC PANEL aspartate aminotransfe rase 23 U/L 15-37 Not Available [facility] (Lab) [address] [place], [address], 08/13/2022 18:43:07 08/14/19 23 08/13/2022 COMPR EHENS ALBERTO METAB OLIC PANEL bilirubin, total 0.20 mg/dL 0.20-1 .30 Not Available [facility] (Lab) [address] [place], [address], 08/13/2022 18:43:07 08/14/19 23 08/13/2022 COMPR EHENS ALBERTO METAB OLIC PANEL calcium 9.5 mg/dL 8.4-10 .2 Not Available [facility] (Lab) [address] [place], [address], 08/13/2022 18:43:07 08/14/19 23 08/13/2022 COMPR EHENS ALBERTO METAB OLIC PANEL total protein 7.5 g/dL 6.3-8. 2 Not Available [facility] (Lab) [address] [place], [address], 08/13/2022 18:43:07 08/14/19 23 08/13/2022 COMPR EHENS ALBERTO METAB OLIC PANEL albumin 4.4 g/dL 3.4-5. 0 Not Available [facility] (Lab) [address] [place], [address], 08/13/2022 18:43:07 08/14/19 23 08/13/2022 COMPR EHENS ALBERTO METAB OLIC PANEL globulin 3.1 g/dL 2.6-4. 2 Not Available [facility] (Lab) [address] [place], [address], 08/13/2022 18:43:07 08/14/19 23 08/13/2022 COMPR EHENS ALBERTO METAB OLIC PANEL A/G ratio 1.4 ratio 1.0-2. 0 Not Available [facility] (Lab) [address] [place], [address], 08/13/2022 18:43:07 08/14/19 23 08/13/2022 CBC/C OMPLE TE BLD COUNT W/DIF F white blood cells 8.8 x10'3 /uL 4.2-10 .8 Not Available [facility] (Lab) [address] [place], [address], 08/13/2022 18:54:26 08/14/19 23 08/13/2022 CBC/C OMPLE TE BLD COUNT W/DIF F red blood cells 4.23 x10'6 /uL 3.80-5 .20 Not Available [facility] (Lab) [address] [place], [address], 08/13/2022 18:54:26 08/14/19 23 08/13/2022 CBC/C OMPLE TE BLD COUNT W/DIF F hemoglobin 12.3 g/dL 12.0-1 5.6 Not Available [facility] (Lab) [address] [place], [address], 08/13/2022 18:54:26 08/14/19 23 08/13/2022 CBC/C OMPLE TE BLD COUNT W/DIF F hematocrit 38.7 % 35.7-4 5.7 Not Available [facility] (Lab) [address] [place], [address], 08/13/2022 18:54:26 08/14/19 23 08/13/2022 CBC/C OMPLE TE BLD COUNT W/DIF F mean red cell volume 91.5 fL 82.0-9 9.0 Not Available [facility] (Lab) [address] [place], [address], 08/13/2022 18:54:26 08/14/19 23 08/13/2022 CBC/C OMPLE TE BLD COUNT W/DIF F mean red cell hemoglobin 29.1 pg 27.0-3 3.0 Not Available [facility] (Lab) [address] [place], [address], 08/13/2022 18:54:26 08/14/19 23 08/13/2022 CBC/C OMPLE TE BLD COUNT W/DIF F mean RBC HGB concentratio n 31.8 g/dL 31.0-3 6.0 Not Available [facility] (Lab) [address] [place], [address], 08/13/2022 18:54:26 08/14/19 23 08/13/2022 CBC/C OMPLE TE BLD COUNT W/DIF F red cell distribution width 13.7 % 11.8-1 5.5 Not Available [facility] (Lab) [address] [place], [address], 08/13/2022 18:54:26 08/14/19 23 08/13/2022 CBC/C OMPLE TE BLD COUNT W/DIF F platelets 215 x10'3 /uL 150-40 0 Not Available [facility] (Lab) [address] [place], [address], 08/13/2022 18:54:26 08/14/19 23 08/13/2022 CBC/C OMPLE TE BLD COUNT W/DIF F mean platelet volume 11.2 fL 9.0-12 .4 Not Available [facility] (Lab) [address] [place], [address], 08/13/2022 18:54:26 08/14/19 23 08/13/2022 CBC/C OMPLE TE BLD COUNT W/DIF F neutrophils 62.4 % 39.0-7 2.0 Not Available [facility] (Lab) [address] [place], [address], 08/13/2022 18:54:26 08/14/19 23 08/13/2022 CBC/C OMPLE TE BLD COUNT W/DIF F lymphocytes 29.8 % 16.0-4 7.0 Not Available [facility] (Lab) [address] [place], [address], 08/13/2022 18:54:26 08/14/19 23 08/13/2022 CBC/C OMPLE TE BLD COUNT W/DIF F monocytes 7.3 % 5.0-12 .0 Not Available [facility] (Lab) [address] [place], [address], 08/13/2022 18:54:26 08/14/19 23 08/13/2022 CBC/C OMPLE TE BLD COUNT W/DIF F eosinophils 0.3 % 1.0-7. 0 low Not Available [facility] (Lab) [address] [place], [address], 08/13/2022 18:54:26 08/14/19 23 08/13/2022 CBC/C OMPLE TE BLD COUNT W/DIF F basophils 0.1 % 0.0-2. 0 Not Available [facility] (Lab) [address] [place], [address], 08/13/2022 18:54:26 08/14/19 23 08/13/2022 CBC/C OMPLE TE BLD COUNT W/DIF F immature granulocytes 0.1 % 0.00-0 .50 Not Available [facility] (Lab) [address] [place], [address], 08/13/2022 18:54:26 08/14/19 23 08/13/2022 CBC/C OMPLE TE BLD COUNT W/DIF F neutrophils, absolute count 5.47 x10'3 /uL 1.5-8. 0 Not Available [facility] (Lab) [address] [place], [address], 08/13/2022 18:54:26 08/14/19 23 08/13/2022 CBC/C OMPLE TE BLD COUNT W/DIF F lymphocytes, absolute count 2.61 x10'3 /uL 1.07-3 .43 Not Available [facility] (Lab) [address] [place], [address], 08/13/2022 18:54:26 08/14/19 23 08/13/2022 CBC/C OMPLE TE BLD COUNT W/DIF F monocytes, absolute count 0.64 x10'3 /uL 0.29-0 .99 Not Available [facility] (Lab) [address] [place], [address], 08/13/2022 18:54:26 08/14/19 23 08/13/2022 CBC/C OMPLE TE BLD COUNT W/DIF F eosinophils, absolute count 0.03 x10'3 /uL 0.02-0 .53 Not Available [facility] (Lab) [address] [place], [address], 08/13/2022 18:54:26 08/14/19 23 08/13/2022 CBC/C OMPLE TE BLD COUNT W/DIF F basophils, absolute count 0.01 x10'3 /uL 0.01-0 .08 Not Available [facility] (Lab) [address] [place], [address], 08/13/2022 18:54:26 08/14/19 23 08/13/2022 CBC/C OMPLE TE BLD COUNT W/DIF F immature granulocytes ,absolute 0.01 x10'3 /uL 0.00-0 .05 Not Available [facility] (Lab) [address] [place], [address], 08/13/2022 18:54:26 08/14/19 23 08/13/2022 CBC/C OMPLE TE BLD COUNT W/DIF F nucleated red blood cells 0.0 % -0 Not Available [facility] (Lab) [address] [place], [address], 08/13/2022 18:54:26 08/14/19 23 08/13/2022 CBC/C OMPLE TE BLD COUNT W/DIF F NRBC# 0.00 x10'3 /uL Not Available [facility] (Lab) [address] [place], [address], 08/13/2022 18:54:26 08/14/19 23 08/13/2022 TSH thyroid-stim ulating hormone 1.160 uIU/m L 0.465- 4.680 Not Available [facility] (Lab) [address] [place], [address], 08/13/2022 19:44:53 08/14/1908/13/2022 HEMOG LOBIN A1C HA1C 5.7 % 4.0-6. 0 Diabe jailyn Scree salvador Crite justo: <5.7% Consi stent with absen ce of diabe jailyn 5.7-6 .4% Consi stent with incre ased risk for diabe jailyn (pred iabet es) >OR=6 .5% Consi stent with diabe jailyn REFER ENCE: Diabe jailyn Care 2016, 39(Osorio ppl.1 ):s13 -s22 Not Available [facility] (Lab) [address] [place], [address], 08/13/2022 20:22:28 02/06/20 22 02/05/2022 US, gallb ladde r No observ ation record ed. [id number] [facility] Add On Lab Orders [address], [place], [address], 07/30/2022 01:28:41 02/06/20 US, abdom en, limit ed [facility] [address], [place] [address] Patien t Name: MARICRUZ SOSA Access ion #: [id number] Sex: F : 2000 2 5 Locati on: RA2 Attend ing Physic nura: ELKHAT IB, RUNDA Orderi ng Physic nura: ELKHAT IB, RUNDA Exam Date: 02/06/20 9:14 AM Exam Name: US ABD/LT D/ORG/ UQ/GB Admitt ing Diagno sis(es ): RADIOL OGY REPORT - FINAL EXAM: US ABD/LT D/ORG/ UQ/GB HISTOR Y: RUQ PAIN COMPAR NOEMI: None. TECHNI QUE: Abdomi nal ultras ound imagin g of the right upper quadra nt is perfor med. Dopple r imagin g of the vascul ar struct ures is perfor med. FINDIN GS: Liver: Unrema rkable . Biliar y system : The common bile duct measur ement is 0.37 cm, the upper limit of normal is 0.6 cm Page 1 of 2 [facility] Patien t Name: MARICRUZ SOSA Access ion #: [id number] Sex: F : 2000 2 5 Exam Date: 02/06/20 9:14 AM Exam Name: US ABD/LT D/ORG/ UQ/GB Admitt ing Diagno sis(es ): Gallbl adder: The gallbl adder wall measur ement is 0.20 cm. The gallbl adder appear s . Lopez 's sign was absent . Pancre as: Screen ed, within normal limits . Right kidney : Dimens ions of the right kidney are 9.9 x 4.9 x 5.6 cm. The right kidney appear s unrema rkable . Vascul ature: The aorta and inferi or vena cava are unrema rkable . Portal vein: Hepato petal flow noted IMPRES CHAPIN: Unrema rkable abdomi nal ultras ound. Create d and electr onical ly signed by: Aaron pugh MD Signed Date: 02/06/20 10:27 AM (CT) Dictat ed by: Aaron pugh MD (CT) (CT) Page 2 of 2 [id number] [facility] (Imaging) [address] [place], [address], 07/30/2022 01:28:41 08/07/19 23 08/06/2022 XR, kidne y + urete r + bladd er No observ ation record ed. [address] [facility] [address], [place], [address], 08/07/2022 10:22:10 Result Notes None recorded. Problems Name Problem SNOMED Code Status Onset Date Resolution Date Notes Provider Name and Address Organization Details Recorded Time Irritable bowel syndrome characterized by constipation 414252478 Active 2021 Not Available [employer] 3 01:26:59 Gastroesophag eal reflux disease 934947101 Active ROXANA Bradley, [facility] [employer] [facility] 3 11:24:17 Nausea 472351271 Active Gabrielle Pedersen MA null, [employer] [facility] [employer] [facility] 3 11:24:24 Mixed anxiety and depressive disorder 170042808 Active ROXANA Bradley, [facility] [employer] [facility] 3 11:24:52 Tension-type headache 116644678 Active ROXANA Bradley, [place] [employer] [facility] [employer] [facility] 3 11:24:59 Abnormal weight 87215433 Active 2022 SANNA Moreno, [facility] [employer] [facility] 3 16:16:08 Nausea and vomiting 76017753 Active 2022 Erika Delgado MD [address], [place] [address], [place], [address] , [facility] [employer] [facility] 3 16:34:05 Malaise and fatigue 542793896 Active 2022 Erika Delgado MD [address], [place] [address], [place], [address] , [facility] [employer] [facility] [employer] [facility] 3 16:38:53 Acid reflux 152748581 Active 2022 Erika Delgado MD [address], [place] [address], [place], [address] , [facility] [employer] [facility] 3 16:41:57 Attention deficit hyperactivity disorder, 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 Medical Equipment None Reported. Medications Name Sig Start Date Stop Date Status Note LastModified by Organization Details LastModified Time terconazo le 0.4 % vaginal cream INSERT 1 APPLICAT ORFUL VAGINALL Y EVERY DAY FOR 7 DAYS 01/28 completed Not Available Not Available Not Available venlafaxi ne ER 37.5 mg capsule,e xtended release 24 hr TAKE 1 CAPSULE BY MOUTH EVERY DAY 01/28 completed Not Available Not Available Not Available clonidine HCl 0.1 mg tablet TAKE 1 TABLET BY MOUTH EVERY NIGHT AT BEDTIME active Not Available Not Available No t Available ibuprofen 800 mg tablet TAKE 1 TABLET BY MOUTH THREE TIMES DAILY NEEDED FOR PAIN active Not Available Not Available No t Available nystatin 100,000 unit/gram topical ointment APPLY TOPICALL Y TO THE AFFECTED AREA TWICE DAILY FOR 5 DAYS active Not Available Not Available No t Available fluconazo le 150 mg tablet TAKE 1 TABLET BY MOUTH NOW. REPEAT IN 7 DAYS 09/22 completed Not Available Not Available Not Available benzonata te 200 mg capsule Take 1 capsule 3 times a day by oral route as needed. 06/30 completed Not Available Not Available Not Available fluconazo le 200 mg tablet TAKE 1 TABLET BY MOUTH EVERY OTHER DAY FOR 3 DOSES 02/18 completed Not Available Not Available Not Available promethaz ine 12.5 mg tablet active Not Available Not Available No t Available metronida zole 0.75 % (37.5 mg/5 gram) vaginal gel INSERT 1 APPLICAT ORFUL VAGINALL Y EVERY DAY AT BEDTIME active Not Available Not Available No t Available dextroamp hetamine- amphetami ne 10 mg tablet TAKE 1 TABLET BY MOUTH TWICE DAILY 09/22 completed Not Available Not Available Not Available benzoyl peroxide 5 % topical gel APPLY TOPICALL Y TO FACE EVERY MORNING active Not Available Not Available No t Available sertralin e 100 mg tablet TAKE 1 TABLET BY MOUTH EVERY NIGHT AT BEDTIME 01/28 completed Not Available Not Available Not Available metronida zole 500 mg tablet TAKE 1 TABLET BY MOUTH EVERY 12 HOURS FOR 7 DAYS 01/28 completed Not Available Not Available Not Available tretinoin 0.05 % topical cream APPLY TOPICALL Y TO FACE EVERY NIGHT AT BEDTIME 01/28 completed Not Available Not Available Not Available ciproflox acin 500 mg tablet TAKE 1 TABLET BY MOUTH EVERY 12 HOURS FOR 3 DAYS 01/28 completed Not Available Not Available Not Available sulfameth oxazole 800 mg-trimet hoprim 160 mg tablet TAKE 1 TABLET BY MOUTH EVERY 12 HOURS active Not Available Not Available No t Available peg-elect rolyte solution 420 gram oral solution MIX AND DRINK DIRECTED 03/12 completed Not Available Not Available Not Available omeprazol e 40 mg capsule,d elayed release TAKE 1 CAPSULE BY MOUTH EVERY DAY active Not Available Not Available No t Available doxycycli ne monohydra te 100 mg tablet TAKE 1 TABLET BY MOUTH TWICE A DAY FOR 7 DAYS 08/13 completed Not Available Not Available Not Available cephalexi n 500 mg capsule TAKE 1 CAPSULE BY MOUTH EVERY 8 HOURS FOR 7 DAYS 01/28 completed Not Available Not Available Not Available pantopraz ole 40 mg tablet,de layed release Take 1 tablet every day by oral route. 08/13 completed Not Available Not Available Not Available erythromy froilan 5 mg/gram (0.5 %) eye ointment APPLY IN AFFECTED EYE(S) TWICE DAILY FOR 14 DAYS 01/28 completed Not Available Not Available Not Available triamcino lone acetonide 0.1 % topical ointment APPLY THIN LAYER TOPICALL Y TO THE AFFECTED AREA TWICE DAILY active Not Available Not Available No t Available omeprazol e 20 mg capsule,d elayed release TAKE 1 CAPSULE BY MOUTH EVERY DAY 08/13 completed Not Available Not Available Not Available hydroxyzi ne HCl 25 mg tablet Take 1 tablet 3 times a day by oral route as needed. active Not Available Not Available No t Available mupirocin 2 % topical ointment APPLY TOPICALL Y THREE TIMES DAILY FOR 7 DAYS 01/28 completed Not Available Not Available Not Available ibuprofen 600 mg tablet TAKE 1 TABLET BY MOUTH THREE TIMES DAILY NEEDED FOR PAIN 01/28 completed Not Available Not Available Not Available albuterol sulfate HFA 90 mcg/actua tion aerosol inhaler INHALE 2 PUFFS BY MOUTH EVERY 4 HOURS NEEDED active Not Available Not Available No t Available intrauter ine device (IUD) Take by intraute rine route. 05/04 completed Not Available Not Available Not Available ondansetr on 4 mg disintegr ating tablet Place 1 tablet 3 times a day by translin gual route as needed. active Not Available Not Available No t Available fluticaso ne propionat e 50 mcg/actua tion nasal spray,damon pension active Not Available Not Available Not Available sertralin e 50 mg tablet TAKE 1 TABLET BY MOUTH EVERY NIGHT AT BEDTIME active Not Available Not Available No t Available metoclopr amide 10 mg tablet active Not Available Not Available No t Available amoxicill in 875 mg-potass ium clavulana te 125 mg tablet 06/30 completed Not Available Not Available Not Available etonogest rel 0.12 mg-ethiny l estradiol 0.015 mg/24 hr vaginal ring INSERT 1 RING VAGINALL Y FOR 3 WEEKS THEN REMOVE FOR 1 WEEK active Not Available Not Available No t Available escitalop july 10 mg tablet TAKE 1 TABLET BY MOUTH EVERY DAY 05/04 completed Not Available Not Available Not Available escitalop july 20 mg tablet Take 1 tablet every day by oral route. active Not Available Not Available No t Available aripipraz ole 5 mg tablet TAKE 1 TABLET BY MOUTH EVERY DAY 09/22 completed Not Available Not Available Not Available metoprolo l tartrate 25 mg tablet 09/22 completed Not Available Not Available Not Available nitrofura ntoin monohydra te/macroc rystals 100 mg capsule TAKE 1 CAPSULE BY MOUTH EVERY 12 HOURS FOR 7 DAYS 03/12 completed Not Available Not Available Not Available Golytely 236 gram-22.7 4 gram-6.74 gram-5.86 gram oral solution TAKE DIRECTED 03/12 completed Not Available Not Available Not Available ID NOW COVID-19 Test Kit TEST DIRECTED TODAY 01/28 completed Not Available Not Available Not Available Zafemy 150 mcg-35 mcg/24 hr transderm al patch APPLY 1 PATCH TOPICALL Y TO THE SKIN EVERY WEEK DIRECTED active Not Available Not Available No t Available Ibsrela 50 mg tablet Take 1 tablet twice a day by oral route for 15 days. 03/12 completed GAVE PATIENT SAMPLES Not Available Not Available Not Available Vitals Date Recorded Body mass index (BMI) Body height Oxygen saturation Oxygen saturation in Arterial blood by Pulse oximetry Heart rate Body temperature Body weight Systolic blood pressure Diastolic blood pressure Provider Name and Address Organization Details Last Updated DateTime 3 31.9 kg/m2 160.02 cm 99 % 99 % 78 /min 97.2 [degF] 23791.6 3 g 124 mm[Hg] 70 mm[Hg] Not Available [facility] 3 01:26:39 Date Recorded Body height Body mass index (BMI) Percentile per age and sex Body mass index (BMI) Body weight Body temperature Heart rate Oxygen saturation Oxygen saturation in Arterial blood by Pulse oximetry Systolic blood pressure Diastolic blood pressure Provider Name and Address Organization Details Last Updated DateTime 3 160.02 cm 94 % 31 kg/m2 47565.6 6 g 97.2 [degF] 75 /min 98 % 98 % 122 mm[Hg] 80 mm[Hg] SANNA Moreno [place] [facility] [employer] 3 16:17:33 Date Recorded Body mass index (BMI) Body height Oxygen saturation Oxygen saturation in Arterial blood by Pulse oximetry Heart rate Body temperature Body weight Systolic blood pressure Diastolic blood pressure Provider Name and Address Organization Details Last Updated DateTime 2 34.5 kg/m2 160.02 cm 98 % 98 % 91 /min 97.7 [degF] 99812.5 1 g 120 mm[Hg] 82 mm[Hg] Not Available [facility] 3 01:26:38 Date Recorded Body mass index (BMI) Body height Oxygen saturation Oxygen saturation in Arterial blood by Pulse oximetry Heart rate Body temperature Body weight Systolic blood pressure Diastolic blood pressure Provider Name and Address Organization Details Last Updated DateTime 2 34.5 kg/m2 160.02 cm 99 % 99 % 86 /min 98.1 [degF] 45809.5 1 g 140 mm[Hg] 80 mm[Hg] Not Available [facility] 3 01:26:38 Date Recorded Body mass index (BMI) Body height Oxygen saturation Oxygen saturation in Arterial blood by Pulse oximetry Heart rate Body temperature Body weight Systolic blood pressure Diastolic blood pressure Provider Name and Address Organization Details Last Updated DateTime 2 31.9 kg/m2 160.02 cm 98 % 98 % 84 /min 97.9 [degF] 69377.6 3 g 124 mm[Hg] 74 mm[Hg] Not Available [facility] 3 01:26:38 Social History Question Answer Notes LastModified by Organizat ion Details LastModified Time Tobacco Smoking Status Never Smoker Not Available [facility] 07/30/2022 01:25:12 What Is Your Level Of Caffeine Consumption? Occasional [id number] Information not available 07/30/2022 What Type Of Diet Are You Following? REGULAR [id number] Information not available 07/30/2022 What Was The Date Of Your Most Recent Tobacco Screening? 02/18/2022 [id number] Information not available 07/30/2022 What Is Your Relationship Status? Single [id number] Information not available 07/30/2022 Have You Recently Traveled Abroad? No [id number] Information not available 07/30/2022 Sex: Female Functional Status Question Answer Note LastModified by Organizat ion Details LastModified Time Do you use any illicit or recreational drugs? Yes [id number] Information not available 07/30/2022 Do you or have you ever used any other forms of tobacco or nicotine? Yes [id number] Information not available 07/30/2022 What is your level of alcohol consumption? None [id number] Information not available 07/30/2022 Do you or have you ever used e-cigarettes or vape? Current user of electronic cigarettes [id number] Information not available 07/30/2022 Mental Status None recorded. Family History Relationship Description Onset Age of this Age Resolved Age Notes LastModified by Organization Details LastModified Time Maternal Grandmother Crohn's disease [id number] Not available 07/30/2022 01:25:27 Maternal Grandfather Crohn's disease [id number] Not available 07/30/2022 01:25:28 Maternal Grandfather Aneurysm [id number] Not available 07/30/2022 01:25:28 Mother Celiac disease [id number] Not available 07/30/2022 01:25:28 Medical History Condition Response BLINDNESS N RHEUMATIC FEVER N KIDNEY STONES N BLADDER PROBLEMS N MRSA N OTHER # 1 N POLIO N LUNG DISEASE/DISORDER N HISTORY OF DRUG ABUSE N COPD N RADIATION / CHEMOTHERAPY N Other # 2 N BLOOD DISEASES N SURGERY N EAR OR HEARING PROBLEMS N MUMPS N SHINGLES N FEMALE PROBLEMS / INFECTIONS N DEPRESSION (INCLUDING POST ) Y BOWEL PROBLEMS N STROKE/TIA N THYROID DISEASE N ULCERS N BENIGN PROSTATIC HYPERPLASIA N MEASLES N CERVICALGIA N HYPOTENSION N TB SKIN TEST N MYOCARDIAL INFARCTION N OBESITY N PARAPELGIA N GERD/NAUSEA N ANEURYSM N URINARY/BLADDER/KIDNEY PROBLEMS N CORONARY ARTERY DISEASE (CAD) N MENIERE'S DISEASE N ADDICTION CONCERNS N ENDOMETRIOSIS N USE OF BLOOD THINNERS N SKIN PROBLEMS N EMPHYSEMA N GASTROINTESTINAL DISORDER N MUSCLE,JOINT OR BONE PROBLEMS N GASTROINTESTINAL BLEEDING N BLOOD CLOTS N ASTHMA N CATARACTS N ERECTILE DYSFUNCTION N GI PROBLEMS N CHF N Low Testosterone N NEUROPATHY N INFERTILITY N AIDS/HIV N FRACTURES N CHEMOTHERAPY / RADIATION N VISION/EYE PROBLEMS N LIVER DISEASE N MALE HYPOGONADISM N HYPERTENSION N TOURETTE'S N ANXIETY DISORDER Y BLOOD TRANSFUSION N ANEMIA/BLOOD DISORDER Y CHRONIC EAR INFECTIONS N BRONCHITIS N TUBERCULOSIS N GLAUCOMA N FOOT PROBLEM N DIVERTICULITIS N SLEEP APNEA N CHICKENPOX N ALLERGIES/HAYFEVER N INFECTIOUS DISEASE N PROSTATE N HEART ARRHYTHMIA N INSOMNIA N HIGH CHOLESTEROL / HYPERLIPIDEMIA N HYPERTHYROIDISM N EYE PROBLEMS N EATING DISORDER N EDEMA N CHRONIC PAIN SYNDROME N CONSTIPATION N CAROTID BLOCKAGE N BACK / NECK PROBLEMS N HAVE YOU BEEN HOSPITALIZED OR SEEN IN [facility] IN THE PAST YEAR ? N ATHEROSCLEROSIS N BREAST PROBLEMS N DIALYSIS N ECZEMA N FIBROMYALGIA N OSTEOPOROSIS N ARTHRITIS N NO SIGNIFICANT PAST MEDICAL HISTORY N APPENDICITIS N DIABETES, TYPE N BAD TEETH N HEARTBURN / REFLUX N ADD/ADHD N AUTISM SPECTRUM DISORDER (ASD) N HEPATITIS / LIVER DISEASE N PULMONARY DISEASE N GOUT N SLEEP DISORDER N ALZHEIMER'S DISEASE N PAIN N HERPES N DEMENTIA N SEIZURES/EPILEPSY N HEADACHES/MIGRAINES N VASCULAR DISEASE N PACEMAKER N DIZZINESS N KIDNEY DISEASE N HEART DISEASE/HEART PROBLEMS N SCARLET FEVER N MULTIPLE SCLEROSIS N MENTAL DISORDER/ILLNESS N DEVELOPMENTAL OR BEHAVIORAL DISORDERS N CARDIAC ARRHYTHMIA N CANCER: SPECIFY N PNEUMONIA N Gall Stones N ATRIAL FIBRILLATION N PULMONARY EMBOLISM N AUTOIMMUNE DISEASE N Gynecological History Statement/Question Response How many live births 0 Abnormal Pap N Flow Light Sexually Active? Y Menses Monthly Y STIs/STDs N Current Control Method IUD Age at Menarche 13 Obstetrics History GPAL:G 0 P 0 0 1 0 Type Value Spontaneous 1 Total 0 Past Encounters Encounter ID Performer Location Encounter Start Date Encounter Closed Date Diagnosis/Indication Diagnosis SNOMED-CT Code Diagnosis ICD10 Code Diagnosis Note [id number] Erika Delgado MD [facility] [address] [facility] [place] [address] 01/28/2022 00:00:00 01/28/2022 20:48:54 [id number] _ATHN_MIGR ATION_1 _ATHENA_M IGRATION_ DEFAULT_1 _1 , 02/18/2022 00:00:00 02/18/2022 15:01:08 [id number] Erika Delgado MD [facility] [place] [address] [place] [address] 03/12/2022 00:00:00 03/13/2022 06:16:31 [id number] Erika Delgado MD [facility] [place] [address] [place] [address] [place] [address] 05/04/2022 00:00:00 05/05/2022 06:43:29 [id number] Erika Delgado MD [facility] [place] [address] [place] [address] [place] [address] 06/30/2022 00:00:00 06/30/2022 18:39:37 [id number] Erika Delgado MD [facility] [place] [address] [place] [address] [place] [address] 08/13/2022 16:07:16 08/13/2022 16:47:22 Nausea and vomiting 14907337 R11.2 Tension-type headache 39 9787783 G44.209 Stretching and heat and analgesic rub Family his tory of diabetes mellitus [id number] Z83.3 Malaise and fatigue 2717 69590 R53.83 Acid reflux 084801010 K2 1.9 Attention deficit hyperactivity disorder, 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 ON OR AFTER 11/28/20 (MEDICAID REPLACEMENT - HMO) Varsha Sosa [id number] Varsha Sosa Notes Date Note Type Note Provider Name and Address Organization Details Recorded Time 08/13/2022 text/html Here today c/o nausea and is vomiting last month Is losing weight. Has abdominal pain. Takes zofran for nausea. It does not help at times. Has bad heartburn. Not taking anything for this. Has the shakes and does not feel well. Has bad headaches too. Has lost weight Has heartburn and can not swallow. Pt is feeling tired all the time. No energy. Erika Delgado MD [address] [facility], [facility] [address], [place], [address], [facility] 08/14/2022 07:12:54 OBGyn Episode No OBEpisode recorded.
== END 2024-11-01 14:32 | disposition home or self-care (01) ==
PROVIDERS: PCP Emergency Medicine; Visit Provider Emergency Medicine
DX: R05.3 Chronic cough (principal)
CPT/HCPCS: 71046

== ENCOUNTER 2025-05-28 13:41 | Outpatient (CLI) | payer OTHER, SELFPAY ==
--- NOTE | 2025-05-28 13:57 | ECHO_ITS ---
Patient Info Name: Varsha Keller Age: 24 years : 2000 Gender: Female Ht: 63 in Wt: 245 lbs BSA: 2.29 m2 HR: 85 bpm BP: 128 / 89 mmHg Technical Quality: Good Exam Date: 05/28/2025 2:01 PM Patient Status: unknown Admit Date: 05/28/2025 Exam Type: CA echo doppler color flow Complete two-dimensional, color flow and Doppler transthoracic echocardiogram is performed. Diffusion Operator: India Conway Attending Provider: Ethan Rodrigez DO Summary 1. Complete two-dimensional, color flow and Doppler transthoracic echocardiogram is performed. 2. Left ventricular chamber dimension is normal. 3. Left ventricular systolic function is normal, estimated at 60-65. 4. The left ventricular diastolic function is normal. 5. E/e' 6 is not elevated. 6. No pulmonary hypertension, estimated pulmonary arterial systolic pressure is 22 mmHg. Left Ventricle Left ventricular chamber dimension is normal. Left ventricular systolic function is normal, estimated at 60-65. The left ventricular diastolic function is normal. E/e' 6 is not elevated. Right Ventricle Right ventricular chamber dimension is normal. Right ventricular systolic function is normal. Left Atria Left atrial chamber dimension is normal. Right Atria Right atrial chamber dimension is normal. Aortic Valve The aortic valve is trileaflet. There is no aortic valve stenosis. There is no aortic valve regurgitation. Pulmonic Valve There is no pulmonic regurgitation. Mitral Valve There is no mitral valve stenosis. There is no mitral valve regurgitation. Tricuspid Valve There is no tricuspid valve regurgitation. No pulmonary hypertension, estimated pulmonary arterial systolic pressure is 22 mmHg. Pericardium/Pleural There is no pericardial effusion. Inferior Vena Cava Normal inferior vena cava with >50% collapse upon inspiration consistent with normal right atrial pressure, 5 mmHg. Aorta The aortic root size at the sinus of Valsalva is normal. Left Ventricular Outflow Tract Name Value Normal LVOT 2D LVOT Diameter 2.0 cm LVOT Doppler LVOT Peak Velocity 91 cm/s LVOT Peak Gradient 3 mmHg LVOT Mean Gradient 2 mmHg LVOT VTI 19 cm LVOT VTI/AV VTI Ratio 0.8 LVOT Stroke Volume 56 ml LVOT CO 4.2 l/min LVOT CI 1.9 l/min/m2 Pulmonic Valve Name Value Normal RVOT Doppler RVOT Peak Velocity 85 cm/s RVOT Peak Gradient 3 mmHg PV Doppler PV Peak Velocity 103 cm/s PV Peak Gradient 4 mmHg Mitral Valve Name Value Normal MV Diastolic Function MV E Peak Velocity 92 cm/s MV A Peak Velocity 55 cm/s MV E/A 1.7 MV Decel Time (PW) 165 ms Tricuspid Valve Name Value Normal TV Regurgitation Doppler TR Peak Velocity 207 cm/s TR Peak Gradient 17 mmHg Estimated PAP/RSVP RA Pressure 5 mmHg <=5 PA Systolic Pressure 22 mmHg <36 RV Systolic Pressure 22 mmHg <36 Aorta Name Value Normal Ascending Aorta Ao Root Diameter (MM) 2.7 cm Ao Root Diam Index (MM) 1.2 cm/m2 Aortic Valve Name Value Normal AV Doppler AV Peak Velocity 116 cm/s AV Peak Gradient 5 mmHg AV Mean Gradient 3 mmHg AV VTI 23 cm AV Area (Cont Eq VTI) 2.4 cm2 >=3.0 AV Area (Cont Eq Antoine) 2.4 cm2 AV DI (Antoine) 0.79 AV Regurgitation 2D LVOT Area 3.0 cm2 Ventricles Name Value Normal LV Dimensions 2D/MM IVS Diastolic Thickness (2D) 0.9 cm 0.6-1.0 IVS Diastole Thickness (MM) 1.0 cm 0.6-0.9 LVID Diastole (2D) 4.5 cm 3.8-5.2 LVID Diastole (MM) 4.6 cm 3.8-5.2 LVIW Diastolic Thickness (2D) 1.1 cm 0.6-0.9 LVIW Diastolic Thickness (MM) 0.9 cm 0.6-0.9 LVID Systole (2D) 3.0 cm 2.2-3.5 LVID Systole (MM) 2.9 cm 2.2-3.5 LVOT Diameter 2.0 cm LV Mass (2D Cubed) 148.43 g 67.00-162.00 LV Mass Index (2D Cubed) 65 g/m2 43-95 Relative Wall Thickness (2D) 0.48 <=0.42 LV Mass (MM Cubed) 144.52 g 67.00-162.00 LV Mass Index (MM Cubed) 63 g/m2 43-95 Relative Wall Thickness (MM) 0.38 LV Fractional Shortening/Ejection Fraction 2D/MM LV Fractional Shortening (2D) 34 % 27-45 LV Fractional Shortening (MM) 36 % 27-45 LV EF (MM Teichholz) 65 % LV EF (2D Teichholz) 63 % LV Diastolic Volume (4C MOD) 83 ml LV EF (4C MOD) 54 % LV Diastolic Volume (2C MOD) 93 ml LV EF (2C MOD) 60 % LV Diastolic Volume (BP MOD) 89 ml 46-106 LV Diastolic Volume Index (BP MOD) 39 ml/m2 29-61 LV Systolic Volume (BP MOD) 38 ml 14-42 LV Systolic Volume Index (BP MOD) 17 ml/m2 8-24 LV EF (BP MOD) 57 % 54-74 LV Diastolic Length (4C) 8.2 cm LV Systolic Length (4C) 6.5 cm LV Stroke Volume (4C MOD) 45 ml Atria Name Value Normal LA Dimensions LA Dimension (MM) 3.5 cm 2.7-3.8 Report Signatures
--- OUTSIDE RECORDS SUMMARY | 2025-05-28 13:57 | XMS_ITS | Clinical Summary ---
Author Organization [facility] Address [address] [place] [address] Care Team Providers Care Mechanic Sound Technician Name Role Phone Erika Delgado MD Primary Care Provider [phone] Allergies No known active allergies Medications ondansetron ODT (ZOFRAN-ODT) 4 mg disintegrating tablet Take 1 tablet (4 mg total) by mouth every 8 (eight) hours as needed for nausea or vomiting 20 tablet 09/09/19 24 Active sertraline (ZOLOFT) 50 mg tablet Take 1 tablet (50 mg total) by mouth nightly Active risperiDONE (RisperDAL) 1 mg tablet Take 1 tablet (1 mg total) by mouth 2 (two) times a day 02/26/20 25 Active omeprazole (PriLOSEC) 20 mg capsule Take 1 capsule (20 mg total) by mouth daily Active metroNIDAZOLE (METROGEL) 0.75 % (37.5mg/5 gram) vaginal gel INSERT 1 APPLICATORFUL VAGINALLY EVERY DAY AT BEDTIME Active metoprolol tartrate (LOPRESSOR) 25 mg immediate release tablet Take 1 tablet (25 mg total) by mouth 2 (two) times a day Active etonogestreL-ethin yl estradioL (NUVARING, ELURYNG) 0.12-0.015 mg/24 hr vaginal ring INSERT 1 RING VAGINALLY FOR 3 WEEKS THEN REMOVE FOR 1 WEEK Active dextroamphetamine- amphetamine (ADDERALL) 20 mg tablet Take 1 tablet (20 mg total) by mouth daily Active albuterol HFA (PROVENTIL HFA,VENTOLIN HFA,PROAIR HFA) 90 mcg/actuation inhaler 2 puffs every 4 (four) hours as needed 06/11/19 23 Active Active Problems Problem Noted Date Diagnosed Date PSVT (paroxysmal supraventricular tachycardia) 1 06/12/2024 Assessment & Plan (04/12/2025 4:30 PM BLAST SETTER): Orders: ECG 12 lead Encounters Date Type Department Care Team Description 04/25/2025 Orders Only [facility] [address] [place] [address] [address], [place] [address] Sameer Page MD 04/17/2025 Telephone [facility] [address] [facility] [address] [place] [address] Caroline Yusuf NP 04/12/2025 2:15 PM BLAST SETTER Office Visit [facility] [address] [place] [address], [place] [address] Caroline Yusuf NP PSVT (paroxysmal supraventricular tachycardia) (Primary Dx) from Last 3 Months Surgical History Surgery Date Site/Laterality Comments ABDOMINAL SURGERY Laparoscopy Medical History Medical History Date Comments Migraines After 2022 GERD (gastroesophageal reflux disease) Whole lif e Asthma 1 year ago Substance abuse (HCC) Marijuana Anemia Anxiety Always Depression After 2022 Family History Medical History Relation Name Comments Learning disabilities Brother Worship/elza both Allergy (severe) Mother Emely Anemia Mother Emely Cancer Mother Emely Depression Mother Emely Memory loss Mother Emely Miscarriages / Stillbirths Mother Emely Alcohol abuse Mother's Brother José Luis Hypertension Paternal Grandfather Puneet Stroke Paternal Grandfather Puneet Asthma Sister 1 Marjan Obesity Sister 2 Marjan Relation Name Status Comments Brother Worship/elza both Alive Mother Emely Alive Mother's Brother José Luis Unknown Paternal Grandfather Puneet Sister 1 Marjan Alive Sister 2 Marjan Alive Social History Tobacco Use Types Packs/Day Years Used Date Smoking Tobacco: Every Day Cigarettes 2 5.1 Started: 05/19/2022 Pipe Vaping Smokeless Tobacco: Never Tobacco Cessation:Ready to Q uit: No; Counseling Given: Not Answered Personal Safety Answer Date Recorded Have you ever been in or are you currently in a harmful physical or emotional relationship or is someone making you feel afraid or unsafe? Denies 09/09/2023 Comments No Sex and Gender Information Value Date Recorded Sex Assigned at Not on file Legal Sex Female 4:10 AM BLAST SETTER Gender Identity Not on file Sexual Orientation Not on file Last Filed Vital Signs Vital Sign Reading Time Taken Comments Blood Pressure 128/84 04/12/2025 3:52 PM BLAST SETTER Pulse 84 04/12/2025 3:52 PM BLAST SETTER Temperature 36.6 C (97.9 F) 09/09/2023 1:31 AM CDT Respiratory Rate 20 09/09/2023 4:21 AM CDT Oxygen Saturation 98% 04/12/2025 3:52 PM BLAST SETTER Inhaled Oxygen Concentration - - Weight 107.5 kg (237 lb) 04/12/2025 3:52 PM BLAST SETTER Height 172.7 cm (5' 8) 09/09/2023 1:31 AM CDT Body Mass Index 36.04 09/09/2023 1:31 AM CDT Plan of Treatment Upcoming Encounters Date Type Department Care Team (Latest Contact Info) Description 06/04/2025 12:50 PM BLAST SETTER Hospital Encounter [facility] [address] [place] [phone] Sameer Page MD [address] [id number] PSVT (paroxysmal supraventricular tachycardia) 06/04/2025 12:50 PM BLAST SETTER - 06/04/2025 2:40 PM BLAST SETTER Surgery [facility] [address] [place] [phone] Sameer Page MD [address] [phone] ABLATION SUPRAVENTRICULAR TACHYCARDIA (SVT) [address] Health Maintenance Due Date Last Done Comments Cervical Cancer Screening 2002 Chlamydia and Gonorrhea (GC/ CT) Screening 2002 Depression Screening 2002 Hepatitis C Screening 2002 Pneumococcal vaccine <65 (1 of 1 - PPSV23, PCV20, or PCV21) 2008 08/21/2003, 02/27/2003, 2002, Additional history exists Meningococcal B Vaccine (2 o f 2 - Bexsero SCDM 2-dose series) 07/31/2020 02/01/2020 Regular Well Visit/Exam 18-64 2020 DTaP/Tdap/Td Vaccine (7 - Td or Tdap) 12/24/2023 12/23/2013, 08/10/2007, 08/20/2005, Additional history exists Influenza Vaccine (#1) 2025 8, 03/13/2017, 04/06/2015, Additional history exists Hepatitis B Screening Completed 06/14/2003 , 02/27/2003, 2002 Varicella Vaccines Completed 05/25/2013, 05/05/2004 HPV Vaccines Completed 03/15/2021, 01/30/2017 Procedures Procedure Name Priority Date/Time Associated Diagnosis Comments ECG 12-LEAD Routine 04/12/2025 3:54 PM BLAST SETTER PSVT (paroxysmal supraventricular tachycardia) from Last 3 Months Results * ECG 12 lead (04/12/2025 3:54 PM BLAST SETTER) Caroline Yusuf BOBCAT DRIVER/LABOR ECG ORDERABLES Gloria l Result from Last 3 Months Insurance [facility] Care Teams Mechanic Sound Technician Relationship Specialty Start Date End Date Erika Delgado MD [facility] [place] [address] PCP - General Family Medicine 07/23/22
--- OUTSIDE RECORDS SUMMARY | 2025-05-28 13:57 | XMS_ITS | Clinical Summary ---
Author Organization [facility] Address [address] [place] [address] Phone Care Team Providers Care Scouring Train Operator Chief Name Role Phone Nelli Prather APRN, CNM Primary Care Provider Roni Tyler MD Unavailable Medications sertraline (ZOLOFT) 50 MG Tablet Take 50 mg by mouth daily. Active risperiDONE (RISPERDAL) 2 MG Tablet Take 2 mg by mouth 2 times daily. Active amphetamine-dext roamphetamine (Adderall) 20 MG Tablet Take 20 mg by mouth 2 times daily. Active Social History Tobacco Use Types Packs/Day Years Used Date Smoking Tobacco: Never Assessed Comments No Sex and Gender Information Value Date Recorded Sex Assigned at Not on file Legal Sex Female 2:01 PM CDT Gender Identity Not on file Sexual Orientation Not on file Last Filed Vital Signs Vital Sign Reading Time Taken Comments Blood Pressure 126/85 03/20/2024 11:15 AM CDT Pulse 90 03/20/2024 11:15 AM CDT Temperature 36.3 C (97.4 F) 03/20/2024 11:15 AM CDT Respiratory Rate 20 03/20/2024 11:15 AM CDT Oxygen Saturation 96% 03/20/2024 11:15 AM CDT Inhaled Oxygen Concentration - - Weight 98 kg (216 lb) 03/20/2024 11:15 AM CDT Height - - Body Mass Index - - Plan of Treatment Health Maintenance Due Date Last Done Comments Hepatitis C Virus (HCV) Screening 2002 Meningococcal B Immunization (2 of 2 - Bexsero SCDM 2-dose series) 07/31/2020 02/01/2020 Pap Smear 08/05/2023 Influenza Immunization (#1) 01/29/202504/01, 03/13/2017, 04/06/2015, Additional history exists SARS-COV-2 Immunization (1 - 2024- season) 2025 Respiratory Syncytial Virus (RSV) Immunization (Adult) (1 - 1-dose 75+ series) 2077 Hepatitis B Immunization Completed 004, 02/27/2003, 2002 Pneumococcal Immunization Combined Aged Out 08/21/2003, 02/27/2003, 2002, Additional history exists No longer eligible based on patient's age to complete this topic Varicella Immunization Completed 05/25/2013, 2003 Meningococcal Immunization (ACWY) Completed 02/01/2020, 01/30/2017, 12/23/2013 Human Papillomavirus (HPV) Immunization Completed 03/15/2021, 01/30/2017 TdaP Immunization Completed 03/17/2023, 12/23/2013 Rotavirus Immunization Aged Out No lo nger eligible based on patient's age to complete this topic Insurance MEDICAID [facility] Care Teams Scouring Train Operator Chief Relationship Specialty Start Date End Date Nelli Parther APRN, CNM [address] [place] [address] PCP - General Advanced Practice Nurse 01/13/24 Roni Tyler MD [address] [phone] Consulting Physician Endocrinology 03/14/24
--- OUTSIDE RECORDS SUMMARY | 2025-05-28 13:57 | XMS_ITS | Clinical Summary ---
Author Organization [facility] Address [facility] [place] [address] Care Team Providers Care Arc Welding Machine Operator Name Role Phone Unavailable Primary Care Provider Unavailabl e Encounters Date Type Department Care Team Description 03/06/2025 Telephone [facility], [address] [phone] Ethan Rodrigez DO Appointment Request from Last 3 Months Social History Tobacco Use Types Packs/Day Years Used Date Smoking Tobacco: Never Assessed Comments Unknown Sex and Gender Information Value Date Recorded Sex Assigned at Not on file Legal Sex Female 5:41 PM CDT Gender Identity Not on file Sexual Orientation Not on file Plan of Treatment Health Maintenance Due Date Last Done Comments Cervical Cancer Screening Pa p Smear (Age 21 to 29) Every 3 Years 2002 Cervical Cancer Screening 2002 Annual Physical 2005 HPV Vaccines (1 - 3-dose series) 2017 Meningococcal B Vaccine (1 o f 2 - Standard) 2018 Hepatitis C 2020 DTaP, Tdap and Td Vaccines ( 1 - Tdap) 2021 Hepatitis B Vaccines (1 of 3 - 19+ 3-dose series) 2021 COVID-19 Vaccine (1 - 2024-2 6 season) 2025 Influenza Adult (#1) 2025 Hepatitis A Vaccines Aged Out No long er eligible based on patient's age to complete this topic Meningococcal Vaccine Aged Out No ama scooby eligible based on patient's age to complete this topic Pneumococcal Vaccine: Pediat rics (0 to 5 Years) and At-Risk Patients (6 to 49 Years) Aged Out No longer eligible b ased on patient's age to complete this topic RSV Immunizations Under 20 Months Aged Out No longer eligible based on patient's age to complete this topic
--- OUTSIDE RECORDS SUMMARY | 2025-05-28 13:57 | XMS_ITS | Clinical Summary ---
Author Organization [facility] Address [address] [place] [address] Care Team Providers Care Layout Former Name Role Phone Carter Ferrari MD Primary Care Provider [phone] Source Comments [facility],non-owned Affiliates and Associated Physician Practices is amultiple site organization consisting of ambulatory clinics and hospital sitesin [place], [place], [place] and [place]. This disclosure is being madepursuant to the Care Everywhere program and may not contain all information available regarding this patient. Last updated 18.[facility] Allergies No known active allergies Medications * [...] SVT Assessment & Plan (07/30/2021 10:34 PM WATER TRAINER): Will obtain 30 day event monitor Family [...] on file Legal Sex Female 5:41 AM WATER TRAINER Gender Identity Not on file Sexual Orientation [...] Health Maintenance Due Date Last Done Comments HPV VACCINE (1 - 3-dose series) 2017 MENINGOCOCCAL (Group B) VACCINE SHARED DECISION-MAKING (1 of 2 - Standard) 2018 HEPATITIS C SCREENING 07/30/2020 DTAP/TDAP/TD VACCINES (1 - Tdap) 2021 HEPATITIS B VACCINE (1 of 3 - 19+ 3-dose series) 2021 PAP SMEAR 08/05/2023 CHLAMYDIA/GONORRHEA SCREENING 10/08/2023 10/07/2022, 08/19/2022, 07/01/2022, Additional history exists DEPRESSION SCREENING 05/31/2024 COVID-19 VACCINE ( season) 2025 INFLUENZA VACCINE (#1) 2025 8, 03/13/2017, 04/06/2015, Additional history exists ZOSTER VACCINE (1 of 2) 2052 HIV SCREENING Completed 03/12/2023 HIB VACCINE Aged Out No longer eligi [...] Mobility General No change( 022 11:31 AM WATER TRAINER) No Bonnie Arcos RN Note: Expected end date: 08/28/2021 The goal is to maintain or improve your mobility at the optimum level for you. Interventions: Insurance [facility] * Guarantor: VARSHA SOSA Account Type Relation to Patient Date of Phone Billing Address Personal/Family [address] [place] [address] [facility] * Guarantor: VARSHA SOSA Account Type Relation to Patient Date of Phone Billing Address Personal/Family [address] [place] [address] * Guarantor: VARSHA SOSA Account Type Relation to Patient Date of Phone Billing Address Personal/Family [address] [place] [address] Care Teams Layout Former Relationship Specialty Start Date End Date Carter Ferrari MD [address] [place] [address] PCP - General Family Medicine 03/13/24
== END 2025-05-28 13:42 | disposition home or self-care (01) ==
LOC: ANHCARD 13:46
PROVIDERS: PCP Emergency Medicine; Visit Provider Internal Medicine Cardiovascular Disease
DX: I47.10 Supraventricular tachycardia, unspecified (principal)
CPT/HCPCS: 93306